=== PATIENT | female | born 1980 | race Two or more races ===

== ENCOUNTER 2020-04-13 13:20 | Emergency (ER) | payer OTHER ==
[~2020-04-13] VITALS: Ht 162.6 cm; Wt 73.6 kg
[2020-04-13 14:20] LABS: BASO % 0.4 % (0.0-1.0); EOS % 0.4 % (0.0-3.0); HEMOGLOBIN 12.8 g/dl (12.0-15.5); LYMPH # 1.9 10^3/uL (1.5-5.0); LYMPH % 28.8 % (24.0-44.0); MEAN CORPUSCULAR HEMOGLOBIN 31.2 pg (27.0-33.0); MEAN CORPUSCULAR VOLUME 97.6 fl (80.0-96.0); MONO # 0.5 10^3/uL (0.0-0.8); MONO % 7.7 % (2.0-8.0); NEUTROPHILS # 4.2 10^3/uL (1.5-8.5); NEUTROPHILS % 62.4 % (36.0-66.0); PLATELET COUNT, AUTOMATED 319 10^3/uL (150-450); WHITE BLOOD COUNT 6.7 10^3/uL (4.0-10.0)
[2020-04-13] MEDS ORDERED: ACETAMINOPHEN 500 MG TAB PO ONE (14:30)
--- OUTSIDE RECORDS SUMMARY | 2020-04-13 14:45 | CCD ---
Author Author [facility] Organization [facility] Address Unknown Phone Unavailable Care Team Providers Care Sr. Payroll Processor Name Role Phone Tari BAILEY MD Unavailable Unavailable Tari BAILEY MD Unavailable Unavailable Tari BAILEY MD Unavailable Unavailable Tari BAILEY MD Unavailable Unavailable Tari BAILEY MD Unavailable Unavailable Tari BAILEY MD Unavailable Unavailable Tari BAILEY MD Unavailable Unavailable Tari BAILEY MD Unavailable Unavailable Tari BAILEY MD Unavailable Unavailable Tari BAILEY MD Unavailable Unavailable Tari BAILEY MD Unavailable Unavailable Tari BAILEY MD Unavailable Unavailable Tari BAILEY MD Unavailable Unavailable Tari BAILEY MD Unavailable Unavailable Tari BAILEY MD Unavailable Unavailable Tari BAILEY MD Unavailable Unavailable Tari BAILEY MD Unavailable Unavailable Tari BAILEY MD Unavailable Unavailable Tari BAILEY MD Unavailable Unavailable Tari BAILEY MD Unavailable Unavailable Tari BAILEY MD Unavailable Unavailable Tari BAILEY MD Unavailable Unavailable Tari BAILEY MD Unavailable Unavailable Donald OCHOA MD Unavailable Unavailable Donald OCHOA MD Unavailable Unavailable Donald OCHOA MD Unavailable Unavailable Donald OCHOA MD Unavailable Unavailable Donald OCHOA MD Unavailable Unavailable Donald OCHOA MD Unavailable Unavailable Donald OCHOA MD Unavailable Unavailable Donald OCHOA MD Unavailable Unavailable Donald OCHOA MD Unavailable Unavailable Re-disclosure Warning The records that you are about to access may contain information from federally-assisted alcohol or drug abuse programs. If such information is present, then the following federally mandated warning applies: This information has been disclosed to you from records protected by federal confidentiality rules (42 CFR part 2). The federal rules prohibit you from making any further disclosure of this information unless further disclosure is expressly permitted by the written consent of the person to whom it pertains or as otherwise permitted by 42 CFR part 2. A general authorization for the release of medical or other information is NOT sufficient for this purpose. The Federal rules restrict any use of the information to criminally investigate or prosecute any alcohol or drug abuse patient.The records that you are about to access may contain highly sensitive health information, the redisclosure of which is protected by Article 27-F of the [facility] Public Health law. If you continue you may have access to information: Regarding HIV / AIDS; Provided by facilities licensed or operated by the [facility] Office of Mental Health; or Provided by the [facility] Office for People With Developmental Disabilities. If such information is present, then the following [facility] mandated warning applies: This information has been disclosed to you from confidential records which are protected by state law. State law prohibits you from making any further disclosure of this information without the specific written consent of the person to whom it pertains, or as otherwise permitted by law. Any unauthorized further disclosure in violation of state law may result in a fine or mcfp sentence or both. A general authorization for the release of medical or other information is NOT sufficient authorization for further disc losure. Encounters Encounter Providers Location Date Indications Data Source(s ) Emergency Attender: KRISTIN BAILEY MD 2019 12:26:00 PM EST - 01/05/2020 02:58:00 PM [facility] Patient discharged. Emergency Attender: REG OCHOA MD 11/03 01:05:00 PM EDT - 11/04/2019 02:15:00 PM T [facility] Patient discharged. Medications Medication Brand Name Start Date Product Form Dose Route Admi nistrative Instructions Pharmacy Instructions Status Indications Reaction Description Data Source(s) 800 mg 11/04/2019 12:00:00 AM EDT tablet 45 TAKE ONE TABLET BY MOUTH THREE TIMES A DAY NEEDED FOR PAIN TAKE ONE TABLET BY MOUTH THREE TIMES A D AY NEEDED FOR PAIN SOLD: 11/04/2019 [facility] 4 mg 11/04/2019 12:00:00 AM EDT tablets,dose pack 21 USE DIRECTED USE DIRECTED SOLD: 11/04/2019 [facility] 500 mg 11/04/2019 12:00:00 AM EDT tablet 30 TAKE ONE TABLET BY MOUTH THREE TIMES A DAY TAKE ONE TABLET BY MOUTH THREE TIMES A DAY SOLD: 11/04/2019 [facility] Insurance Providers Payer name Policy type / Coverage type Policy ID Covered democrat ID Covered democrat's relationship to najera Policy Najera Plan Information [facility] [employer] [id number] SP [id number] [facility] HU[employer] - O/P [id number] 18 [id number] [facility] [employer] - O/P [id number] 18 [id number] Problems, Conditions, and Diagnoses Code Display Name Description Problem Type Effective Dates Data Source(s) Z50393 Nicotine dependence, unspecified, uncomp licated Nicotine dependence, unspecified, uncomplicated Diagnosis 01/05/2020 12:26:00 PM [facility] R0789 Other chest pain Other chest pain Diagnosis 01/05/2020 12 :26:00 PM [facility] U071 COVID-19 COVID-19 Diagnosis 01/05/2020 12:26:00 PM [facility] R509 Fever, unspecified Fever, unspecified Diagnosis 0 12:26:00 PM [facility] M461 Sacroiliitis, not elsewhere classified S acroiliitis, not elsewhere classified Diagnosis 11/04/2019 01:05:00 PM EDT [facility] M545 Low back pain Low back pain Diagnosis 11/04/2019 01:05:00 PM EDT [facility] Results ID Date Data Source [id number] 01/05/2020 12:26:00 PM [facility] 1 OrderSheet [facility] Emergency Department [address] [place] [address] Phone #: ext- [phone] 01/05/2020 12:17 Patient: JOVAN LOPEZ Sex: F : 1980 Age: 39yWEIGHT:67.5 kg (S)ALLERGIES: NoneCHIEF COMPLAINT: fever, sore throat, muscle aches, cough, possible, COVID-19 exposure:DIAGNOSIS: Severe acute respiratory syndrome coronavirus, Viral diseaseLAB ORDERSOrder Description Priority Entered Acknowledged InitialedRapid Strep Screen STAT 12:44 01/05/2020 13:14 Mireya Rayo Julie R.N.; R.N. Verbal order per; Manny Thompson-CInfluenza Nasal A B STAT 12:44 01/05/2020 13:14 Mireya Rayo Julie R.N.; R.N. Verbal order per; Manny Thompson-CCORONAVIRUS STAT 12:44 01/05/2020 13:14 Mireya RayoCOVID-19 Mireya Rayo R.N.; R.NTaurus Verbal order per; Manny Thompson-CDIAGNOSTIC STUDY ORDERSOrder Description Priority Entered Acknowledged InitialedChest 2 View STAT 13:16 01/05/2020 13:57 Mireya Rayo(Oxygen?(No)) Manny Dunham R.N. P.A.-Michael; Reason for Study: fever, pnu vs covidMEDICATION/IV/DRIP/FLUID ORDERSOrder Description Priority Entered Acknowledged InitialedGENERAL ORDERSOrder Description Priority Entered Acknowledged Initialed[Electronically signed by Mireya Rayo R.N. (14:58 01/05/2020)][Electronically signed by Manny Dunham-C (21:40 01/05/2020)] 2 OrderSheet [facility] Emergency Department [address] [place] [address] Phone #: ext- [phone] 01/05/2020 12:17 Patient: JOVAN LOPEZ Sex: F : 1980 Age: 39y[Electronically locked by Mireya Rayo R.N. (14:58 01/05/2020)] Name Value Range Interpretation Code Description Data [facility](s) Supporting Document(s) ID Date Data Source [id number] 01/05/2020 12:26:00 PM [facility] 1 Medication Reconciliation Report [facility] Emergency Department [address] [place] [address] Phone #: ext- [phone] 01/05/2020 12:17 Patient: JOVAN LOPEZ Sex: F : 1980 Age: 39yWeight: 67.5 kgHeight/Length: 64 in.BMI: 25.6ALLERGIES: NoneThe patient's Home Medications are listed below:CONTINUE TAKING THE FOLLOWING MEDICATIONS: Acetaminophen Oral 325 mg, q6h, prn diphenhydrAMINE HCl Oral (25 mg) 1 capsule, daily, at bedtime Mucinex D Oral (60-600 mg), 2x a day Naproxen Oral (500 mg) 1 tablet, 2x a dayThe source(s) of the original Home Medication information:Not obtained.The following Medications were given to the patient in the Emergency Department:None.The following Medications were prescribed to the patient:None. Name Value Range Interpretation Code Description Data [facility](s) Supporting Document(s) ID Date Data Source [id number] 01/05/2020 12:26:00 PM [facility] 1 Medication Administration Record [facility] Emergency Department [address] [place] [address] Phone #: ext- [phone] 01/05/2020 12:17 Patient: JOVAN LOPEZ Sex: F : 1980 Age: 39yWeight: 67.5 kgHeight/Length: 64 inBMI: 25.6ALLERGIES: NoneDate/Time Medication Administered Medication Ordered Name Value Range Interpretation Code Description Data Goldie rce(s) Supporting Document(s) ID Date Data Source [id number] 01/05/2020 12:26:00 PM EST [facility] 1 General Instructions [facility] Emergency Department [address] [place] [address] Phone #: ext- [phone] 01/05/2020 12:17 Patient: JOVAN LOPEZ Sex: F : 1980 Age: 39y Coronavirus COVID-19 presumed (confirmatory testing pending) with upper respiratory infection. Acute viral syndromeINSTRUCTIONS Take Tylenol (Acetaminophen) or Motrin (Ibuprofen) as needed for fever control. Take medication according to label instructions. Rest at home for one weeks (You are on a self quarantine x 1 week. This may be extended or decreased by [facility].). Drink plenty of fluids. ([facility]: [phone]. Please contact them in approx 3-4 days if you have not heard from them. You are on a self quarantine x 1 week. This may be extended or decreased by [facility]. I recommend to purchase a small finger pulse oximeter to monitor your O2 saturation at home. If becomes too low (<90%), please contact your PCP or return to the ER. Recommend to utilize OTC Motrin and Tylenol to control inflammation and pain management. Recommend to follow the instructions on the bottle and not to exceed.). Warnings: Further evaluation is necessary. GENERAL WARNINGS: Return or contact your physician immediately if your condition worsens or changes unexpectedly, if not improving as expected, or if other problems arise. Your Current Medications: Your current home medications have been reviewed. CONTINUE TAKING THE FOLLOWING MEDICATIONS: Acetaminophen Oral : 325 mg q6h, prn. diphenhydrAMINE HCl Oral : Capsule 25 mg, 1 capsule daily, at bedtime. Mucinex D Oral : Tablet Extended Release 12 Hour 60-600 mg, 2x a day. Naproxen Oral : Tablet 500 mg, 1 tablet 2x a day. Follow-up: Return to the emergency department as needed. Follow up with your healthcare provider in about two days if not better. Call for an appointment. Understanding of the discharge instructions verbalized by patient. 2 General Instructions [facility] Emergency Department [address] [place] [address] Phone #: ext- [phone] 01/05/2020 12:17 Patient: JOVAN LOPEZ Sex: F : 1980 Age: 39y ADDITIONAL INFORMATIONViral Syndrome (Adult)A viral illness may cause a number of symptoms such as fever. Other symptoms depend on the partof the body that the virus affects. If it settles in your nose, throat, and lungs, it may cause cough, sorethroat, congestion, runny nose, headache, earache and other ear symptoms, or shortness of breath.If it settles in your stomach and intestinal tract, it may cause nausea, vomiting, cramping, anddiarrhea. Sometimes it causes generalized symptoms like "aching all over," feeling tired, loss ofenergy, or loss of appetite.A viral illness usually lasts anywhere from several days to several weeks, but sometimes it lastslonger. In some cases, a more serious infection can look like a viral syndrome in the first few days ofthe illness. You may need another exam and additional tests to know the difference. Watch for thewarning signs listed below for when to seek medical advice.Home careFollow these guidelines for taking care of yourself at home: If symptoms are severe, rest at home for the first 2 to 3 days. Stay away from cigarette smoke - both your smoke and the smoke from others. You may use gpso-rgc-oyviqnm acetaminophen or ibuprofen for fever, muscle aching, and headache, unless another medicine was prescribed for this. If you have chronic liver or kidney disease or ever had a stomach ulcer or gastrointestinal bleeding, talk with your healthcare provider before using these medicines. No one who is younger than 18 and ill with a fever should take aspirin. It may cause severe disease or . Your appetite may be poor, so a light diet is fine. Avoid dehydration by drinking 8 to 12, 8- ounce glasses of fluids each day. This may include water; orange juice; lemonade; apple, grape, and cranberry juice; clear fruit drinks; electrolyte replacement and sports drinks; and decaffeinated teas and coffee. If you have been diagnosed with a kidney disease, ask your healthcare provider how much and what types of fluids you should drink to prevent dehydration. If you have kidney disease, drinking too much fluid can cause it build up in the your body and be dangerous to your health. Htan-ear-fdshccw remedies won't shorten the length of the illness but may be helpful for symptoms such as cough, sore throat, nasal and sinus congestion, or diarrhea. Don't use decongestants if you have high blood pressure.Follow-up careFollow up with your healthcare provider if you do not improve over the next week. 3 General Instructions [facility] Emergency Department [address] [place] [address] Phone #: ext- [phone] 01/05/2020 12:17 Patient: JOVAN LOPEZ Sex: F : 1980 Age: 39yCall 911Call 911 if any of the following occur: Convulsion Feeling weak, dizzy, or like you are going to faint Chest pain, or more than mild shortness of breathWhen to seek medical adviceCall your healthcare provider right away if any of these occur: Cough with lots of colored sputum (mucus) or blood in your sputum Chest pain, shortness of breath, wheezing, or trouble breathing Severe headache; face, neck, or ear pain Severe, constant pain in the lower right side of your belly (abdominal) Continued vomiting (can't keep liquids down) Frequent diarrhea (more than 5 times a day); blood (red or black color) or mucus in diarrhea Feeling weak, dizzy, or like you are going to faint Extreme thirst Fever of 100.4F (38C) or higher, or as directed by your healthcare provider [phone] The [employer]. [address] [place] [address]. All rights reserved. This information is not intended as asubstitute for professional medical care. Always follow your healthcare professional's instructions. Prevention steps for People with confirmed or suspected COVID-19 (including persons under investigation) who do not need to be hospitalized And People with confirmed COVID-19 who we re hospitalized and determined to be medically stable to go home Your healthcare provider and public health staff will evaluate whether you can be cared for at home. If it isdetermined that you do not need to be hospitalized and can be isolated at home, you will be monitored by staff fromyo local or state health department. You should follow the prevention steps below until a healthcare provider [facility] or state health department says you can return to your normal activities. 4 General Instructions [facility] Emergency Department [address] [place] [address] Phone #: [phone]- [phone] 01/05/2020 12:17 Patient: JOVAN LOPEZ Sex: F : 1980 Age: 39y Stay home except to get medical care People who are mildly ill with COVID-19 are able to isolate at home during their illness. You should restrict activities outside yourhome, except for getting medical care. Do not go to work, school, or public areas. Avoid using public transportation, ride-sharing, ortaxis. Separate yourself from other people and animals in your home People: As much as possible, you should stay in a specificroom and away from other people in your home. Also, you should use a separate bathroom, if available.Animals: You should restrict contact with pets and other animals while you are sick with COVID-19, just like you would around otherpeople. Although there have not been reports of pets or other animals becoming sick with COVID- 19, it is still recommended thatpeople sick with COVID-19 limit contact with animals until more information is known about the virus. When possible, have anothermember of your household care for your animals while you are sick. If you are sick with COVID-19, avoid contact with your pet,including petting, snuggling, being kissed or licked, and sharing food. If you must care for your pet or be around animals while you aresick, wash your hands before and after you interact with pets and wear a facemask. See https://www.cdc.gov/coronavirus/2019-ncov/faq.html#8128-xIpX-zuj-animals for more information. Call ahead before visiting your doctor If you have a medical a ppointment, call the healthcare provider and tell them that you have or may have COVID-19. This will helpthe healthcare provider's office take steps to keep other people from getting infected or exposed. Wear a facemask You should wear a facemask when you are around other people {e.g., sharing a room or vehicle} or pets and before you enter ahealthcare provider's office. If you are not able to wear a facemask {for example, because it causes trouble breathing}, thenpeople who live with you should not stay in the same room with you, or they should wear a facemask if they enter your room. Cover your coughs and sneezes Cover your mouth and nose with a tissue when you cough or sneeze. Throw used tissues in a lined trash can. Immediately washyour hands with soap and water for at least 20 seconds or, if soap and water are not available, clean your hands with analcohol-based hand pipe maker that contains at least 60% alcohol. Clean your hands often Wash your hands often with soap and water for at least 20 seconds, especially after blowing your nose, coughing, or sneezing;going to the bathroom; and before eating or preparing food. If soap and water are not readily available, use an alcohol-based handsanitizer with at least 60% alcohol, covering all surfaces of your hands and rubbing them together until they feel dry. Soap and water are the best option if hands are visibly dirty. Avoid touching your eyes, nose, and mouth with unwashedhands. Flu Like Symptoms / Coronavirus Exposure - 30a Page 1 of 2 Avoid sharing personal household items You should not share dishes, drinking glasses, cups, eating utensils, towels, or bedding with other people or pets in yourhome. After using these items, they should be washed thoroughly with soap and water. Clean all "high- touch" surfaces everyday High touch surfaces include counters, tabletops, doorknobs, bathroom fixtures, toilets, phones, keyboards, tablets, and bedsidetables. Also, clean any surfaces that may have blood, stool, or body fluids on them. Use a household cleaning spray or wipe,according to the label instructions. Labels contain instructions for safe and effective use of the cleaning product including precautions you should take when applyingthe product, such as wearing gloves and making sure you have good ventilation during use of the product. Monitor your symptomshttps://www.Rift.io.Kaznachey/index.php Seek prompt medical attention if your illness is worsening {e.g., difficulty breathing}. Before seeking care, call your healthcareprovider and tell them that you have, or are being evaluated for, COVID-19. Put on a facemask before you enter the facility.These steps will help the healthcare provider's office to keep other people in the office or waiting room from getting infected or 5 General Instructions [facility] Emergency Department [address] [place] [address] Phone #: [phone] 01/05/2020 12:17 Patient: JOVAN LOPEZ Sex: F : 1980 Age: 39yexposed. Ask your healthcare provider to call the local or state health department. Persons who are placed under activemonitoring or facilitated self-monitoring should follow instructions provided by their local health department or occupational healthprofessionals, as appropriate. When working with your local health department check their available hours.If you have a medical emergency and need to call 911, notify the dispatch personnel that you have, or are being evaluated forCOVID-19. If possible, put on a facemask before emergency medical services arrive.Discontinuing home isolationPatients with confirmed COVID-19 should remain under home isolation precautions until the risk of secondary transmission toothers is thought to be low. The decision to discontinue home isolation precautions should be made on a adtx-at-lvty basis, inconsultation with healthcareproviders and state and local health departments.Contacts F[employer]Online informationhttps://www.cdc.gov/coronavirus/2019-ncov/about/ index.html Content source: National Center for Immunization and Respiratory Diseases (NCIRD), Division of Viral Diseases Recommended precautions for household members, intimate partners, and caregivers in a nonhealthcare setting1 of A patient with symptomatic laboratory-confirmed COVID-19 or A patient under investigationHousehold members, intimate partners, and caregivers in a nonhealthcare setting may have close contact2 with aperson with symptomatic, laboratory-confirmed COVID-19 or a person under investigation. Close contacts shouldmonitor their health; they should call their healthcare provider right away if they develop symptoms suggestive of COVID-19 {e.g., fever, cough, shortness of breath} {see Interim [place] Guidance for Risk Assessment and Public Health Management of Persons with Potential Coronavirus Disease 2019 6 General Instructions [facility] Emergency Department [address] [place] [address] Phone #: ext- [phone] 01/05/2020 12:17 Patient: JOVAN LOPEZ Sex: F : 1980 Age: 39y {COVID-19} Exposure in Travel- associated or Community Settings.}Close contacts should also follow these recommendations: Make sure that you understand and can help the patient follow their healthcare provider's instructions for medication{s} and care. You should help the patient with basic needs in the home and provide support for getting groceries, prescriptions, and other personal needs. Monitor the patient's symptoms. If the patient is getting sicker, call his or her healthcare provider and tell them that the patient has laboratory-confirmed COVID-19. This will help the healthcare provider's office take steps to keep other people in the office or waiting room from getting infected. Ask the healthcare provider to call the local or state health department for additional guidance. If the patient has a medical emergency and you need to call 911, notify the dispatch pe our community [facility] that the patient has, or is being evaluated for COVID-19. Household members should stay in another room or be from the patient as much as possible. Household members should use a separate bedroom and bathroom, if available. Prohibit visitors who do not have an essential need to be in the home. Household members should care for any pets in the home. Do not handle pets or other animals while sick. For more information, see COVID-19 and Animals. Make sure that shared spaces in the home have good air flow, such as by an air conditioner or an opened window, weather permitting. Perform hand hygiene frequently. Wash your hands often with soap and water for at least 20 seconds or use an alcohol-based hand pipe maker that contains 60 to 95% alcohol, covering all surfaces of your hands and rubbing them together until they feel dry. Soap and water should be used preferentially if hands are visibly dirty.Avoid touching your eyes, nose, and mouth with unwashed hands. The p atient should wear a facemask when around other people, except when unable {for example, because it causes trouble breathing}. You, as the caregiver should always wear a mask, regardless if the patient has one on or not whenever you are in the same room as the patient. Wear a disposable facemask and gloves when you touch or have contact with the patient's blood, stool, or body fluids, such as saliva, sputum, nasal mucus, vomit, urine. Throw out disposable facemasks and gloves after using them. Do not reuse. When removing personal protective equipment, first remove and dispose of gloves. Then, immediately clean your hands with soap and water or alcohol-based hand pipe maker. Next, remove and dispose of facemask, and immediately clean your hands again with soap and water or alcohol-based hand pipe maker. Avoid sharing household items with the patient. You should not share dishes, drinking glasses, cups, eating utensils, towels, bedding, or other items. After the patient uses these items, you should wash them thoroughly {see below "Wash laundry thoroughly"}. Flu Like Symptoms / Coronavirus Exposure - 30a Page 2 of 2 Clean all "high-touch" surfaces, such as counters, tabletops, doorknobs, bathroom fixtures, toilets, phones, keyboards, tablets, and bedside tables, every day. Also, clean any surfaces that may have blood, stool, or body fluids on them. Use a household cleaning spray or wipe, according to the label instructions. Labels contain instructions for safe and effective use of the cleaning product including precautions you should take when applying the product, such as wearing gloves and making sure you have good ventilation during use of the product. Wash laundry thoroughly. Immediately remove and wash clothes or bedding that have blood, stool, or body fluids on them. Wear disposable gloves while handling soiled items and keep soiled items away from your body. Clean your hands {with soap and water or an alcohol-based hand pipe maker} immediately after removing your gloves. https://www.[employer]/index.php Read and follow directions on labels of laundry or clothing items and detergent. In general, using a normal laundry detergent according to washing machine instructions and dry thoroughly using the warmest temperatures recommended on the clothing label. Place all used disposable gloves, facemasks, and other contaminated items in a lined container before disposing of them with other household waste. Clean your hands {with soap and water or an alcohol-based hand pipe maker} immediately after 7 General Instructions [facility] Emergency Department [address] [place] [address] Phone #: ext- [phone] 01/05/2020 12:17 Patient: JOVAN LOPEZ Sex: F : 1980 Age: 39y handling these items. Soap and water should be used preferentially if hands are visibly dirty. Discuss any additional questions with your state or local health department or healthcare provider. Check available hours when contacting your local health department. Contacts mobiManage.Online information https://www.cdc.gov/coronavirus/2019-ncov/about/index.htmlContent source: National Center for Immunization and Respiratory Diseases (NCIRD), Division of Viral DiseasesFootnotes 1Home healthcare personnel should refer to I trudy Infection Prevention and Control Recommendations for Patients with Known or Patients Under Investigationfor Coronavirus Disease 2019 (COVID-19) in a Healthcare Setting. 2Close contact is defined as-1. being within approximately 6 feet (2 meters) of a COVID-19 case for a prolonged period of time; close contact can occur while caring for, living with, visiting, or sharing a health care waiting area or room with a COVID-19 case - or -2. having direct contact with infectious secretions of a COVID-19 case (e.g., being coughed on You have been given the following additional information: Viral Syndrome (Adult) 8 General Instructions [facility] Emergency Department [address] [place] [address] Phone #: ext- [phone] 01/05/2020 12:17 Patient: JOVAN LOPEZ Sex: F : 1980 Age: 39y COVID-19 Rest at home for one weeks (You are on a self quarantine x 1 week. This may be extended or decreased by JC.).(Electronically signed by Manny Dunham P.A.-C 01/05/2020 21:40) Name Value Range Interpretation Code Description Data Goldie rce(s) Supporting Document(s) ID Date Data Source [id number] 01/05/2020 12:26:00 PM EST [facility] 1 Clinical Report - Nurses [facility] Emergency Department [address] [place] [address] Phone #: [phone]- [phone] 01/05/2020 12:17 Patient: JOVAN LOPEZ Sex: F : 1980 Age: 39yTRIAGEArrived by private vehicle. Historian: patient. Accompanied by family. ( started with cough , seen onsick call and tuesday dx with sinusitis , chest hurts with cough).Chief Complaint: FEVER.Alert.Onset. (tuesday). She has had a sore throat and a cough. ( fever tue 101.0, joint pain).Treatment RING SPINNER:None.SEPSIS SCREEN: SIRS Screen negative. Sepsis Screen negative. No suspected or confirmed signs ofinfection present. --12:24 01/05/20 Mireya Rayo R.N.( general malaise). --12:39 01/05/20 Mireya Rayo R.N.12:37 01/05/20. BP: 124/93. MAP: 103. HR: 81. RR: 20. O2 saturation: 100%. Temp: 99.5 F (oral). Painlevel now: 09/30. --12:39 01/05/20 Mireya Rayo R.N.Acuity: LEVEL 4. --14:56 1 03/06/19 Mireya Rayo R.N.Weight: 67.5 kg stated. Height/Length: 64 inches Per Patient. BMI: 25.6. --12:17 01/05/20 Mireya Rayo R.N.MedicationsNaproxen Oral (Tablet 500 mg) 1 tablet, 2x a day. --12:01/05/20 Mireya Rayo R.N. Acetaminophen Oral 325 mg, q6h as needed. --12:01/05/20 Mireya Rayo R.N. diphenhydrAMINE HCl Oral (Capsule 25 mg) 1 capsule, daily at bedtime. --12:01/05/20 Mireya Rayo R.N. Mucinex D Oral (Tablet Extended Release 12 Hour 60-600 mg), 2x a day. --12:01/05/20 Mireya Rayo R.N.AllergiesNone. --12:01/05/20 Mireya Rayo R.N.PROBLEMS:no known problems.ADDITIONAL SURGERIES:no known surgeries. 2 Clinical Report - Nurses [facility] Emergency Department [address] [place] [address] Phone #: ext- [phone] 01/05/2020 12:17 Patient: JOVAN LOPEZ Sex: F : 1980 Age: 39y History PAST MEDICAL HX: Immunizations: up-to-date. Last normal menstrual period- Jan 01. SOCIAL HX: Light tobacco smoker- less than 1/2 a pack per day. No alcohol use or drug use. No recent travel. No known contact with a sick individual. She was offered HIV testing but declined and hepatitis C testing but declined. She has not traveled outside the [place] Infectious disease exposure: No infectious disease exposure. Patient is not a known carrier of tuberculosis, hepatitis, HIV, MRSA or VRE. Patient is not a known carrier of CRE. SELF HARM ASSESSMENT: Self harm assessment was performed. The patient answered "no" to the question(s) "Have you recently felt down, depressed, or hopeless?", "Do you have thoughts of harming or killing yourself?", "Do you have a plan for harming or killing yourself?", "Have you recently had thoughts about harming or killing others?", "Do you have any dangerous items in your possession?", "Have you noticed less interest or pleasure in doing things?", "Are you here because you tried to hurt yourself?" and "Have you ever tried to hurt yourself before today?". ABUSE ASSESSMENT: Abuse assessment. Abuse denied. No suspicion of abu se. No report of abuse. NUTRITIONAL RISK ASSESSMENT: The nutritional risk assessment revealed no deficiencies. FUNCTIONAL ASSESSMENT: Functional assessment: no impairments noted. LEARNING NEEDS ASSESSMENT: The learning needs assessment revealed no barriers. FALL RISK ASSESSMENT: Fall risk assessment completed. No risk factors identified. SKIN INTEGRITY ASSESSMENT: Skin integrity risk assessment completed. No skin integrity risk identified. --12:24 01/05/20 Mireya Rayo R.N. Interventions Identification band on patient. To treatment room. --12:24 01/05/20 Mireya Rayo R.N.PHYSICAL ASSESSMENTGENERAL / NEURO / PSYCH: Not alert. Oriented X 4.HEENT: Pharyngeal erythema. Mucous membranes are pink.RESPIRATORY: Respirations not labored. Cough. Breath sounds within normal limits.CVS: Normal sinus rhythm noted. Capillary refill less than 2 seconds. Pulses within normal limits.GI / : Abdomen soft and nontender and normal bowel sounds.SKIN: Skin intact. Skin is warm and dry. Normal skin turgor. --12:39 12/22 06/10 Mireya Rayo R.N.NURSING PROGRESS NOTESReassurance given. Two patient identifiers checked. Call light placed in reach. Side rails up x 2. Bedplaced in lowest position. Brakes of bed on. Patient ready for evaluation- PA notified. --12:40 01/05/20Mireya Rayo R.N. 3 Clinical Report - Nurses [facility] Emergency Department [address] [place] [address] Phone #: ext- [phone] 01/05/2020 12:17 Patient: JOVAN LOPEZ Sex: F : 1980 Age: 39y Patient ID band checked for patient name and birthdate: patient confirmed. Flu swab obtained by RN. Labeled in the presence of the patient and sent to lab. Patient ID band checked for patient name and birthdate: patient confirmed. COVID-19 specimen obtained by RN. Labeled in the presence of the patient and sent to lab. Patient ID band checked for patient name and birthdate: patient confirmed. Throat swab obtained by nurse for rapid strep; labeled in the presence of the patient and sent to lab. --13:15 01/05/20 Mireya Rayo R.N. 13:47 01/05/20. Patient walked to radiology with tech. --13:57 01/05/20 Mireya Rayo R.N. Patient walked back from radiology. --13:58 01/05/20 Mireya Rayo R.N. ( waiting on results). --14:18 01/05/20 Mireya Rayo R.N. 14:17 01/05/20. BP: 113/92. MAP: 99. HR: 78. RR: 18. O2 saturation: 100%. Pain level now: 08/30. --14:18 01/05/20 Mireya Rayo R.N.DISPOSITION / DISCHARGE Condition at departure: unchanged. No learning barriers present. Discharge instructions provided and re viewed with the parent. Activity restrictions reviewed. Parent verbalized understanding. Written instructions provided in [place]. The patient was discharged home and accompanied by parent. She left via private vehicle. Parent driving. --14:55 01/05/20 Mireya Rayo R.N. 14:53 01/05/20. BP: 115/78. MAP: 90. HR: 78. RR: 18. O2 saturation: 99%. Temp: 99.1 F. Pain level now: 08/30. --14:55 01/05/20 Mireya Rayo R.N. Departure time: 14:56 01/05/2020. --14:56 01/05/20 Mireya Rayo R.N.Locked/Released at 01/05/2020 14:58 by Mireya Rayo R.N. Name Value Range Interpretation Code Description Data Goldie rce(s) Supporting Document(s) ID Date Data Source [id number] 01/05/2020 12:26:00 PM [facility] 1 Clinical Report - Physicians/Mid Levels [facility] Emergency Department [address] [place] [address] Phone #: ext- [phone] 01/05/2020 12:17 Patient: JOVAN LOPEZ Sex: F : 1980 Age: 39y Time Seen: 12:30 01/05/2020; initial patient contact, initial documentation. Arrived- By private vehicle. Historian- patient. Disposition decision: 14:25 01/05/2020.HISTORY OF PRESENT ILLNESS Chief Complaint: FEVER, COUGH, SORE THROAT and MUSCLE ACHES and possible COVID-19 EXPOSURE. This started about 1 weeks ago and is still present. The patient has had a cough, sinus drainage, nasal congestion, a sore throat and fever. She has had chills, muscle aches and a headache but not been confused. No skin rash, difficulty breathing, chest discomfort or chest pain or nausea. No vomiting, diarrhea, loss of appetite or sputum production. No known contact with a sick individual. (PT sts taht she started with a cough and slight fever. Went to sick call on Tuesday and 'ed with sinusitis. Pt has contineud with fever/chills and general malaise.). Sayra lar symptoms previously. None. Recent medical care: The patient was seen recently at another facility in a clinic.REVIEW OF SYSTEMSNo fatigue, weight loss, photophobia, sinus pain or toothache. No weakness, dizziness, palpitations, calfpain or abdominal pain. No bloody stools, urinary incontinence, joint pain, enlarged lymph nodes or tickbite. No back pain. All other systems reviewed and are negative.PAST HISTORYSee nurses notes. Problems: Back Pain. Sacroiliitis. Additional Surgeries: no known surgeries. Medications: Mucinex D Oral (Tablet Extended Release 12 Hour 60-600 mg), 2x a day. diphenhyd rAMINE HCl Oral (Capsule 25 mg) 1 capsule, daily at bedtime. Acetaminophen Oral 325 mg, q6h as needed. Naproxen Oral (Tablet 500 mg) 1 tablet, 2x a day. Allergies: None.SOCIAL HISTORY 2 Clinical Report - Physicians/[facility] Emergency Department [address] [place] [address] Phone #: ext- [phone] 01/05/2020 12:17 Patient: JOVAN LOPEZ Sex: F : 1980 Age: 39y Light tobacco smoker- less than 1/2 a pack per day. No alcohol use or drug use .ADDITIONAL NOTESThe nursing notes have been reviewed.PHYSICAL EXAMVital Signs: 01/05/2020 12:37 BP: 124/93. MAP: 103. HR: 81. RR: 20. O2 saturation: 100%. Temp: 99.5F. Pain level now: 8/10. Have been reviewed. Oxygen saturation normal.Appearance: Alert. No acute distress.Eyes: Eyelids appear normal to inspection. Conjunctivae and sclerae appear normal to inspection.Corneas appear normal to inspection. Pupils equal, round and reactive to light. EOMs intact. Periorbitalareas appear normal to inspection. Anterior chambers clear.ENT: Airway intact. Nose normal. Nares normal. Pharynx normal. Moist mucous membranes. Uvulamidline. Voice normal.Ear (right): There is dullness of the tympanic membrane and abnormal insufflation. No tenderness of theauricle, pain with movement of the auricle, lymphadenopathy, erythema of the external canal or swelling ofthe external canal. No material in the external canal. Right ear normal. Normal mastoid. No hearingdeficit.Ear (left): There is dullness of the tympanic membrane and abnormal insufflation. No tenderness of theauricle, lymphadenopathy, erythema of the external canal, swelling of the external canal or material in theexternal canal. Left ear normal. Normal mastoid. No hearing deficit.Neck: Normal inspection. Neck supple.CVS: Normal heart rate and rhythm. No JVD present. Pulses normal. Capillary refill normal. Strongperipheral pulses. Heart sounds normal. Pulses: right radial 2+; left radial 2+.Respiratory: Chest normal on inspection. No respiratory distress. Unlabored respirations. Lungs clear.Good chest movement. Breath sounds normal and equal.Abdomen: Normal inspection. Soft and nontender. Bowel sounds normal. No distention.Skin: Skin warm and dry.Neuro: Awake. Alert. Oriented X 3. Mood/affect normal. Speech normal. No motor deficit. Nosensory deficit.Psych: Cognition normal. Thought process and content normal. Insight and judgement normal.LABS, X-RAYS, AND EKGChest X-ray: (J Carlos morgan Kirwin - 01/05/2020 2:01:26 PM No acute disease). Laboratory Tests: Chest 2 View: (MARIAJOSE: 01/05/2020 13:16) ( [facility] 14[facility]15[facility] In Progress CHEST 2 VIEWS Reason(s): fever, pnu vs covid TRANSPORTATION: IV? O2? Oxygen?(No) Room: ED Rapid Strep Screen: (MARIAJOSE: 01/05/2020 12:45) ( MsgRcvd 01/05/2020 13:31) Final results Test Result Flag Units (Reference) 3 Clinical Report - Physicians/Mid Levels [facility] Emergency Department [address] [place] [address] Phone #: ext- [phone] 01/05/2020 12:17 Patient: JOVAN LOPEZ Sex: F : 1980 Age: 39y RAPID STREP NEGATIVE (NORMAL: NEGAT RAPID STREP REENTER NEGATIVE (NORMAL: NEGAT { PROCEDURAL CONTROL VALID ){ KIT LOT # [id number] ){ KIT EXP DATE 05.25.21 )The Strep A 2 assay utilizes isothermal nucleic acid amplification technology fothe qualitative detection of Group A Strep bacterial nucleic acid in throat swabspecimens.All negative test results no longer need to be confirmed with a culture. Follow-up testing requiring a culture is necessary if clinical symptoms persist, or inthe event of an acute rheumatic fever outbreak. A culture will need to beordered by the Qualified Medical Provider.Negative results do not preclude infection with Group A Strep and should not beused as the sole basis for treatment. Influenza Nasal A B: (MARIAJOSE: 01/05/2020 12:45) ( MsgRcvd 01/05/2020 13:32) Final results Test Result Flag Units (Reference) INFLUENZA A NEGATIVE (NORMAL: NEGAT INFLUENZA B NEGATIVE (NORMAL: NEGAT INFLUENZA A REENTER NEGATIVE (NORMAL: NEGAT INFLUENZA B REENTER NEGATIVE (NORMAL: NEGAT PROCEDURAL CONTROL VALID KIT LOT # _[id number] 01/05/20.1. . KIT EXP DATE _05.09.20 01/05/201. .The Influenza A utilizing an isothermal nucleic acid amplification technology for thequalitative detection of influenza A and B viral RNA.Negative results do not preclude influenza virus infection and should not beused as the sole basis for diagnosis, treatment or other patient managementdecisions..PROGRESS AND PROCEDURESCourse of Care: VSS, NAD, AOx3, interacting well and appropriately, no use of accessory muscle, able tospeak full sentences, stable, non-toxic looking. Enter room and pt lying peacefully in bed in NAD. Patient stable. Denies any new issues, concerns, or complaints. ARIS HARRIS itzeina b/l UE. Will obtain labs and imaging for furhte reval. Pending results. Reviewed results Enter room and patient lying peacefully in bed in NAD. Patient stable. Denies any new issues, concerns, or complaints. Discussed results with pt. Discussed tx plan with pt. Discussed and counseled on stable condition. Discussed importance of a f/u with PCP. Discussed return to ER criteria. Answered their questions. Indicates and verbalizes that they understand, agree, and will comply with above. Denies any new questions or concerns. Patient has capacity to understand. Discharge decision based on the following: patient's condition is stable; patient's exam is stable; social support is adequate; transportation is available; follow-up is available. Discussed of OTC Motrin and Tylenol to control inflammation and pain management. Informed to follow directions on bottle that are appropriate for age and/or weight. 4 Clinical Report - Physicians/Mid Levels [facility] Emergency Department [address] [place] [address] Phone #: ext- [phone] 01/05/2020 12:17 Patient: JOVAN LOPEZ Sex: F : 1980 Age: 39y Disposition: Discharged home in good and improved condition. Condition: good and stable.CLINICAL IMPRESSION Coronavirus COVID-19 presumed (confirmatory testing pending) with upper respiratory infection. Acute viral syndromeINSTRUCTIONS Take Tylenol (Acetaminophen) or Motrin (Ibuprofen) as needed for fever control. Take medication according to label instructions. Rest at home for one weeks (You are on a self quarantine x 1 week. This may be extended or decreased by [facility].). Drink plenty of fluids. ([facility]: [phone]. Please contact them in approx 3-4 days if you have not heard from them. You are on a self quarantine x 1 week. This may be extended or decreased by [facility]. I recommend to purchase a small finger pulse oximeter to monitor your O2 saturation at home. If becomes too low (<90%), please contact your PCP or return to the ER. Recommend to utilize OTC Motrin and Tylenol to control inflammation and pain management. Recommend to follow the instructions on the bottle and not to exceed.). Warnings: Further evaluation is necessary. GENERAL WARNINGS: Return or contact your physician immediately if your condition worsens or changes unexpectedly, if not improving as expected, or if other problems arise. Your Current Medications: Your current home medications have been reviewed. CONTINUE TAKING THE FOLLOWING MEDICATIONS: Acetaminophen Oral : 325 mg q6h, prn. diphenhydrAMINE HCl Oral : Capsule 25 mg, 1 capsule daily, at bedtime. Mucinex D Oral : Tablet Extended Release 12 Hour 60-600 mg, 2x a day. Naproxen Oral : Tab let 500 mg, 1 tablet 2x a day. Follow-up: Return to the emergency department as needed. Follow up with your healthcare provider in about two days if not better. Call for an appointment. Understanding of the discharge instructions verbalized by patient. 5 Clinical Report - Physicians/Mid Levels [facility] Emergency Department [address] [place] [address] Phone #: ext- [phone] 01/05/2020 12:17 Patient: JOVAN LOPEZ Sex: F : 1980 Age: 39y(Electronically signed by Manny Dunhma P.A.-C 01/05/2020 21:40) Name Value Range Interpretation Code Description Data Goldie e(s) Supporting Document(s) ID Date Data Source [id number] 01/05/2020 12:26:00 PM [facility] VisitID: [id number] Date: 10:01Lab results reviewed. Communicated information to patient. Faxed results to [facility].(Electronically signed by Osbaldo Haq - 01/09/2020 10:01) Name Value Range Interpretation Code Description Data Goldie rce(s) Supporting Document(s) ID Date Data Source [id number] 01/07/2020 10:54:00 [place] [address] PHONE: [phone] FAX: [phone] Name .................. : JOHN Bennett Acct Number.................. : [id number] ROOM. ................. : -1B MR Number ................... : [id number] Stay type ............. : E/R Discharge Date......... ... : Admit Date ......... : 01/05/20 Admit Phys .................... : COONEYNORM Date of ....... : 1980 Family Phys ................... : UNKNOWN Phone .................. : [phone] Age ................................ : 39 Film# .................. .:[id number] Sex ................................. : F Unsigned transcriptions are preliminary reports and do not represent a medical or legal document CHEST 2 VIEWS [id number] COMPLETE:01/05/20 14:15 MIRANDA [id number] R nishi(s): fever, pnu vs covid CHEST X-RAY: 2-VIEWS COMPARISON: None. FINDINGS: The cardiac and mediastinal silhouettes appear normal and the lungs are clear. The bones and soft tissues are normal. The upper abdomen is unremarkable. IMPRESSION: No acute disease identifiable. Electronically Reviewed and Signed By Ree Whitman MD , 01/07/20 10:54, KGG Transcribe Initials: POLINA , Transcribe Date: 01/05/20 14:43, Dictation Date: Copy for: ЕЛЕНА DOTSON via fax Copy for: EMERGENCY DEPT via modem Copy for: 710 MED REC DISCHARGED Page 1 of 1 Name Value Range Interpretation Code Description Data Goldie rce(s) Supporting Document(s) ID Date Data Source [id number] 01/05/2020 12:45:00 PM EST [facility] Name Value Range Interpretation Code Description Data [facility] rce(s) Supporting Document(s) SARS coronavirus 2 RNA [facility] This lab was ordered by [facility] and reported by [facility]. ID Date Data Source [id number] 01/09/2020 06:12:00 AM EST [facility] Name Value Range Interpretation Code Description Data [facility] rce(s) Supporting Document(s) SARS-CoV-2, MARCO Detected Not Detected A [facility] This nucleic acid amplification test was developed and its performancecharacteristics determined by [facility]. Nucleic acidamplification tests include PCR and TMA. This test has not been FDAcleared or approved. This test has been authorized by FDA under anEmergency Use Authorization (EUA). This test is only authorized forthe duration of time the declaration that circumstances existjustifying the authorization of the emergency use of in vitrodiagnostic tests for detection of SARS-CoV-2 virus and/or diagnosisof COVID-19 infection under section 564(b)(1) of the Act, 21 U.S.C.360bbb-3(b) (1), unless the authorization is terminated or revokedsooner.When diagnostic testing is negative, the possibility of a falsenegative result should be considered in the context of a patient'srecent exposures and the presence of clinical signs and symptomsconsistent with COVID- 19. An individual without symptoms of COVID-19and who is not shedding SARS-CoV-2 virus would expect to have anegative (not detected) result in this assay. ID Date Data Source [id number] 01/05/2020 01:31:00 PM EST [facility] Name Value Range Interpretation Code Description Data Goldie rce(s) Supporting Document(s) Influenza virus A Ag [Presence] in Nasopharynx by [facility] y NEGATIVE NORMAL: NEGATIVE [facility] Influenza virus B Ag [Presence] in Nasopharynx by [facility] y NEGATIVE NORMAL: NEGATIVE [facility] NEGATIVENEGATIVE PROCEDURAL CO NTROL VALID KIT LOT # _[id number] 01/05/20.1330. . KIT EXP DATE _05.09.20 01/05/20. .The Influenza A & B assay is a rapid molecular in vitro diagnostic testutilizing an isothermal nucleic acid amplification technology for thequalitative detection of influenza A and B viral RNA.Negative results do not preclude influenza virus infection and should not beused as the sole basis for diagnosis, treatment or other patient managementdecisions. ID Date Data Source [id number] 01/05/2020 01:31:00 PM EST [facility] Name Value Range Interpretation Code Description Data Goldie rce(s) Supporting Document(s) RAPID STREP NEGATIVE NORMAL: NEGATIVE [facility] RAPID STREP REENTER NEGATIVE NORMAL: NEGATIVE [facility] { PROCEDURAL CONTROL VALID ){ KIT LOT # [id number] ){ KIT EXP DATE 05.25.21 )The Strep A 2 assay utilizes isothermal nucleic acid amplification technology fothe qualitative detection of Group A Strep bacterial nucleic acid in throat swabspecimens.All negative test results no longer need to be confirmed with a culture. Follow-up testing requiring a culture is necessary if clinical symptoms persist, or inthe event of an acute rheumatic fever outbreak. A culture will need to beordered by the Qualified Medical Provider.Negative results do not preclude infection with Group A Strep and should not beused as the sole basis for treatment. ID Date Data Source [id number] 11/05/2019 10:06:00 AM EDT [facility] [address] [place] [address] PHONE: [phone] FAX: [phone] Name .................. : JOHN Bennett Acct Number.................. : [id number] ROOM. ................. : TR-03 MR Number ................... : [id number] Stay type ............. : E/R Discharge Date......... ... : Admit Date ......... : 11/04/19 Admit Phys .................... : VENERUS BR Date of ....... : 1980 Family Phys ................... : UNKNOWN Phone .......... ........ : [phone] Age ................................ : 39 Film# .................. .:[id number] Sex ................................. : F Unsigned transcriptions are preliminary reports and do not represent a medical or legal document CT LUMBAR SP W/O CONT 05250 COMPLETE:11/04/19 13:35 E [id number] Reason(s): LBP SI Joint CT OF THE LUMBAR SPINE WITHOUT CONTRAST: INDICATION: Low back pain and SI joint pain. FINDINGS: Scans were obtained from the mid portion of T12 to the S2 level. Images were obtained with soft tissue and bone windows. The discs appear normal. No spinal stenosis, abnormal paravertebral process or significant degenerative changes are seen. The visualized portions of the upper aspects of the SI joints appear normal. IMPRESSION: Negative lumbosacral spine CT scan. While performing the above CT examination, radiation dose reduction was accomplished utilizing automated exposure control, adjusting of the mA and kV based on the patient's body size and/or the use of imperative reconstructive techniques. CT dose: 322.2 mGycm Electronically Reviewed and Signed By Aniket Liz M.D. , 11/05/19 10:06, [place] Transcribe Initials: POLINA , Transcribe Date: 11/04/19 14:11, Dictation Date: Copy for: [facility] via fax Copy for: EMERGENCY DEPT via modem Copy for: 710 MED REC DISCHARGED Page 1 of 1 Name Value Range Interpretation Code Description Data Goldie rce(s) Supporting Document(s) ID Date Data Source [id number] 11/04/2019 01:05:00 PM EDT [facility] 1 OrderSheet [facility] Emergency Department [address] [place] [address] Phone #: ext- [phone] 11/04/2019 12:39 Patient: JOVAN LOPEZ Sex: F : 1980 Age: 39yWEIGHT:67.5 kg (S)ALLERGIES: No Known Drug AllergyCHIEF COMPLAINT: back injury, back painDIAGNOSIS: Sacroiliac joint inflamedLAB ORDERSOrder Description Priority Entered Acknowledged InitialedDIAGNOSTIC STUDY ORDERSOrder Description Priority Entered Acknowledged InitialedCT LUMBAR SP STAT 13:11/04/2019 Ack'd: 13:22 13:29 Tuan,W/O CONT Masha Garcia RTaurusNTaurus(Oxygen?(No)) PA; R.N.(IV?(No)) Reason for Study: LBP SI JointMEDICATION/IV/DRIP/FLUID ORDERSOrder Description Priority Entered Acknowledged InitialedToradol IM 30 mg 13:21 11/04/2019 Ack'd: 13:22 13:41 Alexandro Dickerson Amber Amber R.N. PA; R.N.predniSONE PO 60 13:21 11/04/2019 Ack'd: 13:22 13:40 mg Alexandro Dickerson Amber Amber R.N. PA; R.N.Valium PO 5 mg 13:21 11/04/2019 Ack'd: 13:22 13:41 Alexandro Dickerson Amber Amber R.N. PA; R.NTaurusGENERAL ORDERSOrder Description Priority Entered Acknowledged Initialed[Electronically signed by Masha Dickerson R.N. (14:11/04/2019)][Electronically signed by Alexandro Bello (20:41 )][Electronically locked by Masha Dickerson R.N. (14:11/04/2019)] Name Value Range Interpretation Code Description Data Goldie rce(s) Supporting Document(s) ID Date Data Source [id number] 11/04/2019 01:05:00 PM EDT [facility] 1 Medication Reconciliation Report [facility] Emergency Department [address] [place] [address] Phone #: ext- [phone] 11/04/2019 12:39 Patient: JOVAN LOPEZ Sex: F : 1980 Age: 39yWeight: 67.5 kgHeight/Length: 64 in.BMI: 25.6ALLERGIES: No Known Drug AllergyThe patient's Home Medications are listed below:CONTINUE TAKING THE FOLLOWING MEDICATIONS: Ibuprofen Oral (800 mg) 1 tablet, last dose: 1899, prnThe source(s) of the original Home Medication information:Not obtained.The following Medications were given to the patient in the Emergency Department:Prednisone [PO] PO 60 mg, administered: 11/04/2019 1:35:00 PMValium [PO] PO 5 mg, administered: 11/04/2019 1:36:00 PMToradol [IM] IM 30 mg, administered: 11/04/2019 1:41:00 PMThe following Medications were prescribed to the patient:ibuprofen 800 mg tablet Take 1 tablet three times a day as needed for pain for 15 days -- Dispense 45tablet. Refills: 0. Substitution permitted.Pharmacy - [facility] - [address] ; [place] [address]. .Medrol (José Miguel) 4 mg tablets in a dose pack Take 1 tablet as directed for 6 days -- Dispense 1 pack.Refills: 0. Substitution permitted.[id number] - [address] ; [place] [address]. FaxNumber: .methocarbamol 500 mg tablet Take 1 tablet three times a day for 10 days -- Dispense 30 tablet. Refills:0. Substitution permitted.[facility] [place] #[facility] - [address] ; [place] [address]. . -- KEN Kennedy 2 Medication Reconciliation Report [facility] Emergency Department [address] [place] [address] Phone #: ext- [phone] 11/04/2019 12:39 Patient: JOVAN LOPEZ Sex: F : 1980 Age: 39y Name Value Range Interpretation Code Description Data Goldie rce(s) Supporting Document(s) ID Date Data Source [id number] 11/04/2019 01:05:00 PM EDT [facility] 1 Medication Administration Record [facility] Emergency Department [address] [place] [address] Phone #: ext- [phone] 11/04/2019 12:39 Patient: JOVAN LOPEZ Sex: F : 1980 Age: 39yWeight: 67.5 kgHeight/Length: 64 inBMI: 25.6ALLERGIES: No Known Drug Allergy Date/Time Medication Administered Medication OrderedGiven TORADOL [IM] (KETOROLAC Toradol IM 30 mg13:41 11/04/2019 TROMETHAMINE)aMsha Dickerson R.N. Dose: 30 mg IMGiven PREDNISONE [PO] predniSONE PO 60 mg13:35 11/04/2019 Dose: 60 mg Tablets Masha Rich R.N.Given VALIUM [PO] (DIAZEPAM) Valium PO 5 mg13:36 11/04/2019 Dose: 5 mg Tablets Masha Rich R.N. Name Value Range Interpretation Code Description Data Goldie rce(s) Supporting Document(s) ID Date Data Source [id number] 11/04/2019 01:05:00 PM EDT [facility] 1 General Instructions [facility] Emergency Department [address] [place] [address] Phone #: ext- [phone] 11/04/2019 12:39 Patient: JOVAN LOPEZ Sex: F : 1980 Age: 39yAcute left sided sacroiliitis.INSTRUCTIONSNo strenuous activity until released.Your Current Medications: Your current home medications have been reviewed.CONTINUE TAKING THE FOLLOWING MEDICATIONS:Ibuprofen Oral : Tablet 800 mg, 1 tablet, Last: 1900, prn.Prescription Medications:ibuprofen 800 mg tablet Take 1 tablet three times a day as needed for pain for 15 days -- Dispense 45tablet. Refills: 0. Substitution permitted.Pharmacy - [facility] - [address] ; [place] [address]. .Medrol (José Miguel) 4 mg tablets in a dose pack Take 1 tablet as directed for 6 days -- Dispense 1 pack.Refills: 0. Substitution permitted.[facility] - [address] [place] [address]. .methocarbamol 500 mg tablet Take 1 tablet three times a day for 10 days -- Dispense 30 tablet. Refills:0. Substitution permitted.[facility] - [address] [place] [address]. .Follow-up:Follow up with your doctor Tuesday. Reason for referral: evaluation, treatment and Physical Therapy andMRI if symptoms persist. Summary of care provided to patient.Understanding of the discharge instructions verbalized by patient. ADDITIONAL INFORMATIONSacroiliitisThe sacrum is the triangle-shaped bone at the base of the spine. It is linked to the other pelvis bones 2 General Instructions [facility] Emergency Department [address] [place] [address] Phone #: ext- [phone] 11/04/2019 12:39 Patient: JOVAN LOPEZ Sex: F : 1980 Age: 39yby the sacroiliac joints, also called SI joints. Sacroiliitis is when one or both SI joints are hurt orinflamed. It can make small movements of the lower back and pelvis very painful.This condition has been linked to other diseases. They include ankylosing spondylitis, rheumatoidarthritis, psoriasis, and Crohn's disease or colitis. Symptoms may include pain or stiffness in the hips,lower back, thighs, or buttocks. Pain occurs most often in the morning or after sitting for long periodsof time. The pain may get worse when you walk. The swinging motion of the hips strains the SI joints.Sacroiliitis is caused by many factors such as: Heavy lifting, especially if not done the right way Severe injury, such as a fall or car accident Osteoarthritis Infection of the jointThis condition is hard to diagnose. It may be confused with other causes of low back pain. To confirmthe diagnosis, you may be given a shot of numbing medicine in the SI joint. Treatment includes rest,physical therapy, and anti-inflammatory medicines. If another health problem is the cause, then thatmust also be treated. More testing may be needed if your symptoms don't get better.Home care If your healthcare provider has prescribed medicines, take them as directed. You may use rsex-mdt-lkgaiyw pain medicine to control pain, unless another medicine was prescribed. If prednisone was prescribed, don't use NSAIDs, or nonsteroidal anti-inflammatory drugs, such as ibuprofen or naproxen. Talk with your provider before using this medicine if you have chronic liver or kidney disease or ever had a stomach ulcer or gastrointestinal bleeding. If you were referred to physical therapy, make an appointment. Be sure to do any prescribed exercises. Don't smoke. Smoking reduces blood flow to the inflamed area. This makes it harder to treat. Talk with your doctor if you need help quitting.Follow-up careFollow up with your healthcare provider, or as advised.If you had an X-ray or an MRI, you will be notified of any new findings that may affect your care.When to seek medical advice 3 General Instructions [facility] Emergency Department [address] [place] [address] Phone #: ext- [phone] 11/04/2019 12:39 Patient: JOVAN LOPEZ Sex: F : 1980 Age: 39yContact your healthcare provider right away if any of these occur: Increasing low back pain Inflammation of the eyes Skin rash or redness Weakness or numbness in one or both legs Loss of bowel or bladder control Numbness in the groin area [id number] [employer]. [address] [place] [address]13. All rights reserved. This information is not intended as asubstitute for professional medical care. Always follow your healthcare professional's instructions. You have been given the following additional information: Sacroiliitis No strenuous activity until released.(Electronically signed by KEN Kennedy 11/04/2019 20:41) Name Value Range Interpretation Code Description Data Goldie rce(s) Supporting Document(s) ID Date Data Source [id number] 11/04/2019 01:05:00 PM EDT [facility] 1 Clinical Report - Nurses [facility] Emergency Department [address] [place] [address] Phone #: ext- [phone] 11/04/2019 12:39 Patient: JOVAN LOPEZ Sex: F : 1980 Age: 39yTRIAGEArrived by private vehicle. Historian: patient.Triage time: 12:57 11/04/2019. Acuity: LEVEL 3.Chief Complaint: BACK PAIN.12:57 11/04/19. Alert. No acute distress.Onset. (8 days ago). ( Left low back pain). No history of recent trauma.Treatment RING SPINNER:Took ibuprofen. (800 mg po at 1 900).SEPSIS SCREEN: SIRS Screen negative. Sepsis Screen negative. No suspected or confirmed signs ofinfection present. --13:03 11/04/19 Iram Lo RN12:57 11/04/19. BP: 100/75. MAP: 83. HR: 84. RR: 14. O2 saturation: 100%. Temp: 98.2 F. Pain levelnow: 11/30. --13:03 11/04/19 Iram Lo RN.Weight: 67.5 kg stated. Height/Length: 64 inches Per Patient. BMI: 25.6. --12:56 11/04/19 FRANKIE Alejandra.MedicationsIbuprofen Oral (Tablet 800 mg) 1 tablet, as needed, last dose 1900. --13:01 11/04/19 Iram Lo RN.AllergiesNo Known Drug Allergy. --13:01 11/04/19 Iram Lo RN.PROBLEMS:no known problems.ADDITIONAL SURGERIES:no known surgeries.Wnwnrgy70:57 11/04/19.PAST MEDICAL HX: Tetanus status: up-to-date. Immunizations: up-to-date. Last normal menstrualperiod- Oct 11.SOCIAL HX: Never smoker. No alcohol use or drug use. She was offered HIV testing but declined andhepatitis C testing but declined. She has not traveled outside the [place] 2 Clinical Report - Nurses [facility] Emergency Department [address] [place] [address] Phone #: ext- [phone] 11/04/2019 12:39 Patient: JOVAN LOPEZ Sex: F : 1980 Age: 39y Infectious disease exposure: No infectious disease exposure. (Denies contact with PUI for COVID-19, denies symptoms of COVID-19). Patient is not a known carrier of tuberculosis, hepatitis, HIV, MRSA or VRE. Patient is not a known carrier of CRE. SELF HARM ASSESSMENT: Self harm assessment was performed. The patient answered "no" to the question(s) "Do you have thoughts of harming or killing yourself?" and "Have you recently had thoughts about harming or killing others?". ABUSE ASSESSMENT: Abuse assessment. The patient had positive responses to the question(s) "Do you feel safe in your home?" (yes). Abuse denied. No suspicion of abuse. No report of abuse. NUTRITIONAL RISK ASSESSMENT: The nutritional risk assessment revealed no deficiencies. FUNCTIONAL ASSESSMENT: Functional assessment: no impairments noted. LEARNING NEEDS ASSESSMENT: The learning needs assessment revealed no barriers. FALL RISK ASSESSMENT: Fall risk assessment completed. No risk factors identified. SKIN INTEGRITY ASSESSMENT: Skin integrity risk assessment completed. No skin integrity risk identified. --13:03 11/04/19 Iram Lo RN.PHYSICAL HHTJAAAVEX62:02 11/04/19. Ambulatory to room.GENERAL / NEURO / PSYCH: Alert. Oriented X 4. Appears in pain.RESPIRATORY: Respirations not labored. Chest nontender.CVS: Normal heart rate and rhythm.GI / : Abdomen nontender.EXTREMITIES: Sensation intact in extremities. ROM of extremities within normal limits.BACK: Normal inspection of the neck and back. Limited ROM of the back. Soft tissue tenderness in theleft lower lumbar paraspinous region. --13:04 11/04/19 Iram Lo RN.NURSING PROGRESS NOTES13:03 11/04/19. Patient gowned. Two patient identifiers checked. Call light placed in reach. Side railsup. Bed placed in lowest position. Brakes of bed on. Patient ready for evaluation- ED physician and PAnotified. --13:04 11/04/19 Iram Lo RN Patient transported to CT by wheelchair with mask and telecommunications switch technician. --13:26 11/04/19 Masha Dickerson R.N. Patient returned from CT by wheelchair with mask and telecommunications switch technician. --13:34 11/04/19 Masha Dickerson R.N. 13:35 11/04/2019 Prednisone PO Tablets 60 mg given. Allergies verified and confirmed 5 rights. 3 Clinical Report - Nurses [facility] Emergency Department [address] [place] [address] Phone #: ext- [phone] 11/04/2019 12:39 ---- Patient: JOVAN LOPEZ Sex: F : 1980 Age: 39y Information reviewed with patient including reason for taking this medication, signs of allergic reaction and precautions. Verbalizes understanding. --13:40 11/04/19 Masha Dickerson R.N. 13:36 11/04/2019 Valium (diazePAM) PO Tablets 5 mg given. Allergies verified and confirmed 5 rights. Information reviewed with patient including reason for taking this medication, signs of allergic reaction, precautions and sedative warning. Verbalizes understanding. --13:41 11/04/19 Masha Dickerson R.N. 13:41 11/04/2019 Toradol (Ketorolac Tromethamine) IM 30 mg given. Given in the left deltoid. Allergies verified and confirmed 5 rights. Information reviewed with patient including reason for taking this medication, signs of allergic reaction and precautions. Verbalizes understanding. --13:41 11/04/19 Masha Dickerson R.N. Patient gowned. Reassurance given. The patient reports no complaints and she is calm and resting quietly. GENERAL / NEURO / PSYCH: Alert. Oriented X 4. RESPIRATORY: No respiratory distress. Patient waiting for CT results. --14:05 11/04/19 Masha Dickerson R.N. 14:08 11/04/19. BP: 99/66. MAP: 77. HR: 66. RR: 16. O2 saturation: 99% on room air. --14:11/04/19 Masha Dickerson R.N.DISPOSITION / DISCHARGE 14:15 11/04/19. Departure time: 14:15 11/04/2019. Condition at departure: improved. No learning barriers present. Discharge instructions provided and reviewed with the patient. Reviewed warnings. Reviewed medication(s) side effects, precautions, dosing and course information. Prescription(s) sent electronically to pharmacy (Medrol, ibuprofen, methocarbamol). Reviewed referral to a primary care physician for followup. Work note given. Patient verbalized understanding. Written instructions provided in [place]raini. The patient was discharged by the physician water quality assistant. She was discharged home and accompanied by family. She left ambulatory and via private vehicle. Family member driving. --14:19 11/04/19 Masha Dickerson R.N. 14:15 11/04/19. BP: 98/66. MAP: 76. HR: 65. RR: 16. O2 saturation: 100% on room air. Temp: 97.2 F. Pain level now: 04/02. --14:19 11/04/19 Masha Dickerson R.N.Locked/Released at 11/04/2019 14:19 by Masha Dickerson R.N. Name Value Range Interpretation Code Description Data Goldie rce(s) Supporting Document(s) ID Date Data Source [id number] 11/04/2019 01:05:00 PM EDT [facility] 1 Clinical Report - Physicians/Mid Levels [facility] Emergency Department [address] [place] [address] Phone #: ext- [phone] 11/04/2019 12:39 Patient: JOVAN LOPEZ Sex: F : 1980 Age: 39y Time Seen: 13:15 11/04/2019. Arrived- By private vehicle. Historian- patient.HISTORY OF PRESENT ILLNESS Chief Complaint: BACK INJURY and BACK PAIN. Onset- 8 days ago; pt was deadlifting initially and pain was better then returned and it is still present. It was gradual in onset and has been constant. It is described as being moderate in degree and in the area of the left lower lumbar spine, left SI joint and lower lumbar spine. The quality is noted to be aching, "pain" and similar to prior episodes. No bladder dysfunction, bowel dysfunction, sensory loss or motor loss. Patient notes the possibility of an injury. Similar symptoms previously. Patient has had similar symptoms twice. Recent medical care: Not recently seen/assessed.REVIEW OF SYSTEMSLast normal menstrual period- Oct 11, pt took ept this AM and it was negative. Sexual history - sexuallyactive. Uses condoms. No fever, chills, eye irritation, difficulty with urination or urinary frequency. Nohematuria, skin rash, headache, depression or sore throat. No cough, difficulty breathing, chest pain,abdominal pain or nausea. No vomiting, diarrhea, black stools or bloody stools.PAST HISTORYThe patient has had prior back pain. Additional Surgeries: no known surgeries. Medications: Ibuprofen Oral (Tablet 800 mg) 1 tablet, as needed, last dose 0. Allergies: No Known Drug Allergy.SOCIAL HISTORYNever smoker. No alcohol use or drug use.PHYSICAL EXAMVital Signs: 11/04/2019 12:57 BP: 100/75. MAP: 83. HR: 84. RR: 14. O2 saturation: 100%. Temp: 98.2 F.Pain level now: 11/30. Have been reviewed as normal. Oxygen saturation normal.Appearance: Alert. No acute distress.HEENT: Normal external inspection.Eyes: Pupils equal, round and reactive to light. 2 Clinical Report - Physicians/Mid Levels [facility] Emergency Department [address] [place] [address] Phone #: ext- [phone] 11/04/2019 12:39 ----- Patient: JOVAN LOPEZ Sex: F : 1980 Age: 39y ENT: Ears normal. Pharynx normal. Neck: Normal inspection. Neck nontender. Painless ROM. CVS: Heart sounds normal. Respiratory: No respiratory distress. Abdomen: No visible injury. Back: Muscle spasm of the back. Mild vertebral point tenderness over the lower lumbar spine. Soft tissue tenderness. Limited ROM in the back. No CVA tenderness. (pos ttp left SI joint). Skin: Skin warm and dry. Normal skin color. No rash. Normal skin turgor. Extremities: Extremities exhibit normal ROM. Extremities nontender. Neuro: Oriented X 3.LABS, X-RAYS, AND EKGCT L-Spine: No acute findings. The study was interpreted by the radiologist and contemporaneously byme. Interpretation time: 14:11/04/2019.PROGRESS AND PROCEDURESCourse of Care: 14:Nov 04 [address] scan. (Discussed exam findings, dx and tx planand pt is agreeable with dx and tx plan.). Patient counseled in person regarding the patient's stable condition, test results, diagnosis and need for follow-up. Patient agrees with plan of care. :Nov 04 2019. Disposition: Discharged home in good and improved condition (:Nov 04 2019).CLINICAL IMPRESSION Acute left sided sacroiliitis.INSTRUCTIONS No strenuous activity until released. Your Current Medications: Your current home medications have been reviewed. CONTINUE TAKING THE FOLLOWING MEDICATIONS: Ibuprofen Oral : Tablet 800 mg, 1 tablet, Last: 1900, prn. Prescription Medications: ibuprofen 800 mg tablet Take 1 tablet three times a day as needed for pain for 15 days -- Dispense 45 tablet. Refills: 0. Substitution permitted. [facility] - [address] ; [place] [address]. . 3 Clinical Report - Physicians/Mid Levels [facility] Emergency Department [address] [place] [address] Phone #: ext- [phone] 11/04/2019 12:39 Patient: JOVAN LOPEZ Sex: F : 1980 Age: 39y Medrol (José Miguel) 4 mg tablets in a dose pack Take 1 tablet as directed for 6 days -- Dispense 1 pack. Refills: 0. Substitution permitted. [facility] - [address] [place] [address]. . methocarbamol 500 mg tablet Take 1 tablet three times a day for 10 days -- Dispense 30 tablet. Refills: 0. Substitution permitted. [facility] - [address] [place] [address]. . Follow-up: Follow up with your doctor Tuesday. Reason for referral: evaluation, treatment and Physical Therapy and MRI if symptoms persist. Summary of care provided to patient. Understanding of the discharge instructions verbalized by patient.(Electronically signed by KEN Kennedy 11/04/2019 20:41) Name Value Range Interpretation Code Description Data Goldie rce(s) Supporting Document(s) Procedure
--- NOTE | 2020-04-13 15:03 | REP ---
INDICATION: r pelvic pain, hx of fibroids, +home preg test. COMPARISON: None. TECHNIQUE: Transabdominal and endovaginal probes FINDINGS: Both trans abdominal and endovaginal probes were utilized. The uterus is anteverted and measures 8.6 x 6.3 x 6.4 cm. In the fundus towards the left side is a small fluid collection 3 x 4 x 4 mm. This may suggest a gestational sac which would give a mean sac diameter of 3.4 mm or 4 weeks 6 days. Right side on Ev probe shows a uterine fibroid at 3.3 x 3.2 x 3.3 cm. The right ovary is enlarged at 4.4 x 3.2 x 3.1 cm. Within is a hyperechoic area 3.9 x 2.4 x 2.7 cm cm that may reflect an hemorrhagic corpus luteum cyst. Trace pelvic free fluid. Left ovary 2.2 x 1.8 x 1.7 cm without adjacent free fluid or ovarian lesion. Doppler tracings for both ovarian arteries show resistive index 0.53, no torsion. IMPRESSION: Findings suggest a gestational sac in the uterine fundus with mean sac diameter 3.4 mm corresponding to 4 weeks 6 days, no yolk sac or pole identified at this time. Findings suggest a hemorrhagic corpus luteum in the right ovary with trace free fluid adjacent but no evidence for torsion. Left ovary unremarkable. Recommend follow-up with beta HCG and repeat ultrasound 8-10 days. <Electronically signed by Edin Silver > 04/13/20 1500
[2020-04-13 15:12] LABS: ALT/SGPT 38 U/L (12-78); BILIRUBIN,DIRECT < 0.1 MG/DL (0.0-0.2); BILIRUBIN,TOTAL 0.4 MG/DL (0.2-1.0); BLOOD UREA NITROGEN 9 MG/DL (7-18); CARBON DIOXIDE LEVEL 24 MEQ/L (21-32); CHLORIDE LEVEL 104 MEQ/L (98-107); CREATININE FOR GFR 0.87 MG/DL (0.55-1.30); GLOMERULAR FILTRATION RATE > 60.0 (>60); GLUCOSE, FASTING 80 MG/DL (70-100); HCG, SERUM QUANTITATIVE 2418 MIU/ML; LIPASE 95 U/L (73-393); POTASSIUM SERUM 4.1 MEQ/L (3.5-5.1); SODIUM LEVEL 136 MEQ/L (136-145); TOTAL PROTEIN 7.8 GM/DL (6.4-8.2)
[2020-04-13 15:15] VITALS: BP 102/68
== END 2020-04-13 15:24 | disposition home or self-care (01) ==
LOC: M ED 13:20
DX: N83.291 Other ovarian cyst, right side (principal); D25.9 Leiomyoma of uterus, unspecified; Z3A.01 Less than 8 weeks gestation of pregnancy; F17.210 Nicotine dependence, cigarettes, uncomplicated

== ENCOUNTER → 2020-04-15 | Outpatient (CLI) | payer OTHER | LOC: M LAB 15:36 | PROVIDERS: ATTEND Physician Assistant Medical | DX: N83.291 Other ovarian cyst, right side (principal) ==

== ENCOUNTER 2020-05-14 10:36 | Emergency (ER) | payer OTHER ==
[~2020-05-14] VITALS: Ht 162.6 cm; Wt 71.6 kg
[2020-05-14] MEDS ORDERED: MULTTAB20 PO (10:45)
[2020-05-14] MEDS ORDERED: ONDANSETRON 4MG/2ML VIAL IV ONE (11:00)
[2020-05-14] MEDS ORDERED: NS 1,000 ML IV ONE (11:00)
--- NOTE | 2020-05-14 11:44 | REP ---
INDICATION: rlq pain. COMPARISON: Comparison study April 13, 2020.. TECHNIQUE: Trans abdominal scanning is performed. FINDINGS: A right-sided hypoechoic a uterine fibroid is seen 2.7 cm in greatest diameter. There is a twin intrauterine gestation. Embryonic pole of fetus a measures 2.2 cm and that of fetus B 1.9 cm in crown-rump length. These correspond with gestational age estimate of 8 weeks 6 days an 8 weeks 3 days respectively. heart rate for twin a is 174 and that for twin B is also recorded at 174 beats per minute. No extra uterine abnormality is observed. No complication is seen. IMPRESSION: Viable twin intrauterine gestation at 8 weeks 5 days by crown-rump length. EDWIN by sonography 19 December 2020. No complication seen. <Electronically signed by Martinez Wade > 05/14/20 [id number]
[2020-05-14 11:45] LABS: BASO % 0.4 % (0.0-1.0); EOS % 0.4 % (0.0-3.0); HEMATOCRIT 34.5 % (36.0-47.0); HEMOGLOBIN 11.8 g/dl (12.0-15.5); LYMPH # 1.3 10^3/uL (1.5-5.0); LYMPH % 16.4 % (24.0-44.0); MEAN CORPUSCULAR HEMOGLOBIN 32.3 pg (27.0-33.0); MEAN CORPUSCULAR HGB CONC 34.2 g/dl (32.0-36.5); MEAN CORPUSCULAR VOLUME 94.5 fl (80.0-96.0); MONO # 0.5 10^3/uL (0.0-0.8); MONO % 6.6 % (2.0-8.0); NEUTROPHILS # 6.1 10^3/uL (1.5-8.5); NEUTROPHILS % 75.8 % (36.0-66.0); PLATELET COUNT, AUTOMATED 274 10^3/uL (150-450); RED BLOOD COUNT 3.65 10^6/uL (4.00-5.40)
[2020-05-14 12:28] LABS: ALBUMIN 3.3 GM/DL (3.2-5.2); ALT/SGPT 31 U/L (12-78); BILIRUBIN,DIRECT 0.1 MG/DL (0.0-0.2); BILIRUBIN,TOTAL 0.3 MG/DL (0.2-1.0); BLOOD UREA NITROGEN 8 MG/DL (7-18); CALCIUM LEVEL 9.1 MG/DL (8.5-10.1); CARBON DIOXIDE LEVEL 21 MEQ/L (21-32); CHLORIDE LEVEL 106 MEQ/L (98-107); CREATININE FOR GFR 0.64 MG/DL (0.55-1.30); GLOMERULAR FILTRATION RATE > 60.0 (>60); GLUCOSE, FASTING 87 MG/DL (70-100); HCG, SERUM QUANTITATIVE 136330 MIU/ML; LIPASE 53 U/L (73-393); POTASSIUM SERUM 4.6 MEQ/L (3.5-5.1); SODIUM LEVEL 136 MEQ/L (136-145)
[2020-05-14] MEDS ORDERED: CEPH500C PO (13:27)
[2020-05-14] MEDS ORDERED: ONDA4TAB6 PO (13:28)
[2020-05-14 13:43] VITALS: BP 106/65
== END 2020-05-14 13:50 | disposition home or self-care (01) ==
LOC: M ED 10:36
DX: O21.9 Vomiting of pregnancy, unspecified (principal); O23.41 Unspecified infection of urinary tract in pregnancy, first trimester; O30.001 Twin pregnancy, unspecified number of placenta and unspecified number of amniotic sacs, first trimester; Z3A.08 8 weeks gestation of pregnancy
CPT/HCPCS: 76801; 76802; 80047; 80048; 80076; 81001; 83690; 84702; 85025; 86850; 86900; 86901; 87088; 87186; 93976; 96361; 96374; 99284; J2405

== ENCOUNTER 2020-06-21 13:53 | Emergency (ER) | payer OTHER ==
[~2020-06-21] VITALS: Ht 162.6 cm; Wt 75.6 kg
[~2020-06-21 13:53] MED LIST: CEPH500C PO; MULTTAB20 PO; ONDA4TAB6 PO
[2020-06-21] MEDS ORDERED: NS 1,000 ML IV ONE ×2 (15:30→19:10)
[2020-06-21] MEDS ORDERED: ACETAMINOPHEN 500 MG TAB PO ONE (15:30)
[2020-06-21] MEDS ORDERED: METOCLOPRAMIDE INJ 10MG/2ML VIAL (J2765 PER 1) IV ONE (15:30)
--- NOTE | 2020-06-21 16:27 | REP ---
INDICATION: R sided pelvic pain, 15 weeks preg, no bleeding COMPARISON: 05/14/2020 TECHNIQUE: Transabdominal obstetrical ultrasound with color Doppler evaluation. FINDINGS: Examination demonstrates early diamniotic dichorionic twin gestation. No evidence for subchorionic hemorrhage. Incidental posterior intramural fibroid measures 3.9 x 5.0 x 3.6 cm. Gestational age by LMP 15 weeks 2 days with EDWIN 12/11/2020. Gestational age by 1st ultrasound 14 weeks 1 day with EDWIN 12/19/2020. TWIN A FHR equals 163 beats per minute. Amniotic fluid volume is normal. Grade 0 placenta identified posteriorly without previa. TWIN B FHR equals 156 beats per minute. Amniotic fluid volume is normal. Grade 0 placenta identified posteriorly and without previa. IMPRESSION: Normal early diamniotic dichorionic twin gestation. <Electronically signed by Power Koch > 06/21/20 [id number]
[2020-06-21] MEDS ORDERED: MULTIVITAMIN -ADULT INJECTION 10 ML, THIAMINE INJection 100 MG, FOLIC ACID 1 MG in NS 1... IV ONE (18:55)
[2020-06-21 19:33] LABS: BASO % 0.3 % (0.0-1.0); EOS # 0.1 10^3/uL (0.0-0.5); EOS % 0.4 % (0.0-3.0); HEMATOCRIT 27.8 % (36.0-47.0); HEMOGLOBIN 9.4 g/dl (12.0-15.5); LYMPH # 1.8 10^3/uL (1.5-5.0); LYMPH % 16.4 % (24.0-44.0); MEAN CORPUSCULAR HEMOGLOBIN 32.4 pg (27.0-33.0); MEAN CORPUSCULAR HGB CONC 33.8 g/dl (32.0-36.5); MEAN CORPUSCULAR VOLUME 95.9 fl (80.0-96.0); MONO # 0.4 10^3/uL (0.0-0.8); MONO % 3.8 % (2.0-8.0); NEUTROPHILS # 8.7 10^3/uL (1.5-8.5); PLATELET COUNT, AUTOMATED 240 10^3/uL (150-450); WHITE BLOOD COUNT 11.2 10^3/uL (4.0-10.0)
[2020-06-21 19:45] LABS: INR 1.03; PROTHROMBIN TIME 13.7 SECONDS (12.5-14.3)
[2020-06-21 19:46] LABS: PARTIAL THROMBOPLASTIN TIME 28.7 SECONDS (24.2-38.5)
[2020-06-21 19:49] LABS: ALBUMIN 2.6 GM/DL (3.2-5.2); ALT/SGPT 17 U/L (12-78); BILIRUBIN,DIRECT < 0.1 MG/DL (0.0-0.2); BILIRUBIN,TOTAL 0.2 MG/DL (0.2-1.0); BLOOD UREA NITROGEN 10 MG/DL (7-18); CALCIUM LEVEL 8.6 MG/DL (8.5-10.1); CARBON DIOXIDE LEVEL 21 MEQ/L (21-32); CHLORIDE LEVEL 108 MEQ/L (98-107); CREATININE FOR GFR 0.56 MG/DL (0.55-1.30); GLOMERULAR FILTRATION RATE > 60.0 (>60); GLUCOSE, FASTING 136 MG/DL (70-100); LIPASE 60 U/L (73-393); POTASSIUM SERUM 3.5 MEQ/L (3.5-5.1); SODIUM LEVEL 139 MEQ/L (136-145); TOTAL PROTEIN 5.9 GM/DL (6.4-8.2)
[2020-06-21 22:12] VITALS: BP 111/65
== END 2020-06-21 22:14 | disposition home or self-care (01) ==
LOC: M ED 13:53
DX: R51.9 Headache, unspecified (principal); D25.9 Leiomyoma of uterus, unspecified; Z3A.15 15 weeks gestation of pregnancy
CPT/HCPCS: 76815; 80048; 80076; 81001; 83690; 85025; 85610; 85730; 96361; 96365; 96366; 96375; 99284; J2765; J3411

== ENCOUNTER 2020-08-08 11:03 | Outpatient (CLI) | payer OTHER ==
[~2020-08-08] VITALS: Ht 162.6 cm; Wt 89.3 kg
[2020-08-08 11:19] VITALS: BP 102/65
[2020-08-08] MEDS ORDERED: ECOT81TA5 PO (11:23)
[2020-08-08] MEDS ORDERED: ACET-907 PO (11:24)
[2020-08-08] MEDS ORDERED: FERR325T3 PO (11:24)
[2020-08-08] MEDS ORDERED: COLA100C5 PO (11:24)
[2020-08-08 13:11] LABS: APPEARANCE, URINE CLEAR (CLEAR); BACTERIA, URINE AUTO NEGATIVE (NEGATIVE); BILIRUBIN, URINE AUTO NEGATIVE (NEGATIVE); BLOOD, URINE BLOOD NEGATIVE (NEGATIVE); COLOR, URINE YELLOW (YELLOW); GLUCOSE, URINE (UA) AUTO NEGATIVE (NEGATIVE); KETONE, URINE AUTO NEGATIVE (NEGATIVE); LEUKOCYTE ESTERASE, URINE AUTO NEGATIVE (NEGATIVE); MUCUS, URINE SMALL (NEGATIVE); NITRITE, URINE AUTO NEGATIVE (NEGATIVE); PROTEIN, URINE AUTO NEGATIVE (NEGATIVE); RBC, URINE AUTO 0 /HPF (0-3); SPECIFIC GRAVITY URINE AUTO 1.018 (1.002-1.035); SQUAMOUS EPITHELIAL CELL UR AU 0 /HPF (0-6); UROBILINOGEN, URINE AUTO 0.2 mg/dL (0.0-2.0); WBC, URINE AUTO 2 /HPF (0-3)
[2020-08-08 15:47] VITALS: BP 124/62
--- NOTE | 2020-08-08 17:32 | REP ---
INDICATION: WGT, SONJA,POSITION, AND CERVICAL LENGTH. COMPARISON: None. TECHNIQUE: Transabdominal FINDINGS: Multiple ultrasonographic images of fetus A shows a living intrauterine gestation in the transverse head maternal right position. The placenta is posterior and not low-lying. The cervix measures 2.7 cm in length and is closed. Doppler interrogation of the heart is a heart rate of 149 beats per minute. The subjective amniotic fluid volume is within normal limits. BPD: 5.1 cm 21 weeks feet days HC: 18.2 cm 20 weeks 4 days AC: 16.7 cm 21 weeks 5 days FL: 3.7 cm 21 weeks 5 days The estimated weight is 437 g no percentile was calculated Doppler interrogation of the umbilical artery shows an AB ratio of 3.95. This is within the normal range The anatomical screen was incomplete though no anomalies were detected Fetus B: Multiple sonographic images show a living intrauterine gestation in the breech presentation Doppler interrogation of the heart is a heart rate of 152 beats per minute. The subjective amniotic fluid volume is within normal limits. Doppler interrogation of the umbilical artery shows an AB ratio of 4.5. This is within the normal range BPD: 4.7 cm 20 weeks 2 days HC: 18.2 cm 20 weeks 4 days AC: 17.1 cm 20 weeks 1 day FL: 3.5 cm 21 1 week The estimated weight is 428 g. No percentage was calculated. The anatomical screen was markedly incomplete although no anomalies were detected Note is made of a 4.8 x 4.1 x 6 cm sized round solid nodule in the uterus posteriorly suggesting myomatous change IMPRESSION: Twin gestation as described above. The anatomical screen is incomplete needs to be repeated. All none of fetus A's anatomy could be confirmed. The estimated gestational was not calculated by the technologist for either fetus. <Electronically signed by Blane Sellers > 08/08/20 1328
--- NOTE | 2020-08-08 18:51 | IPNPDOC ---
Text Note Date of Service The patient was seen on 08/08/20. NOTE Item Value Date Time Bedside Glucose (Misc Panel) 74 MG/DL 08/08/20 1212 Item Value Date Time Urine Color YELLOW 08/08/20 1217 Urine Appearance CLEAR 08/08/20 1217 Urine pH 7.0 UNITS 08/08/20 1217 Urine Specific [place] 1.018 08/08/20 1217 Urine Protein NEGATIVE mg/dL 08/08/20 1217 Urine Glucose (Auto)(UA) NEGATIVE mg/dL 08/08/20 1217 Urine Ketones (Auto) NEGATIVE mg/dL 08/08/20 1217 Urine Blood NEGATIVE 08/08/20 1217 Urine Nitrite NEGATIVE 08/08/20 1217 Urine Bilirubin NEGATIVE 08/08/20 1217 Urine Urobilinogen 0.2 mg/dL 08/08/20 1217 Urine Leukocyte Esterase (Auto) NEGATIVE 08/08/207 Urine WBC (Auto) 2 /HPF 08/08/20 1217 Urine RBC (Auto) 0 /HPF 08/08/20 1217 Urine Hyaline Casts (Auto) 0 /LPF 08/08/20 1217 Urine Bacteria (Auto) NEGATIVE 08/08/207 Urine Squamous Epithelial Cells 0 /HPF 08/08/20 1217 Urine Mucus (Auto) SMALL 08/08/20 1217 39 yo G2 P 1 LMP03/05/20 EDC 12/19/20 SEEN IN TRIAGE FOR CONTRACTIONS NO VAGINAL BLEEDING NO DISCHARGE . HAS NOT NAD ANYTHING TO EAT OR DRINK TODAY. PAST HISTORY 03/2006 38 WEEKS PRE E CS 4LBS 14 OZ . RISK FACTORS 1 AMA 2 DI/DI TWINS 3 PRIOR CS 4 HX PRE E PLAN OF CARE URINE US ASSESSMENT HYDRATE US DI/DI TWINS APPROPRIATE GROWTH FOR 20 WEEKS TWIN A 15 GRAMS MEASURE 21,4 WEEKS TWIN B 15 OZ MEASURE 21.0 WEEKS . CERVICAL LENGTH 2.7 CM NO FUNNELING . DISCHARGE UNDELIVERED NAME: JOVAN LOPEZ DATE OF : 1980 AGE: 39 SEX: F REPORT #: [id number] ROOM: [facility] TECHNOLOGIST: [facility] DOCTOR: Jasbir Rice MD Ordered for Date&Time: 08/08/20 1532 cc: [~ rep ct ivnm] Service Date&Time: 08/08/20 1610 EXAMINATION REQUESTED: US OBS SINGEL GEST REASON FOR PATIENT VISIT: LABOR CHECK REASON FOR EXAM/COMMENT: WGT, SONJA,POSITION, AND CERVICAL LENGTH INDICATION: WGT, SONJA,POSITION, AND CERVICAL LENGTH. COMPARISON: None. TECHNIQUE: Transabdominal FINDINGS: Multiple ultrasonographic images of fetus A shows a living intrauterine gestation in the transverse head maternal right position. The placenta is posterior and not low-lying. The cervix measures 2.7 cm in length and is closed. Doppler interrogation of the heart is a heart rate of 149 beats per minute. The subjective amniotic fluid volume is within normal limits. BPD: 5.1 cm 21 weeks feet days HC: 18.2 cm 20 weeks 4 days AC: 16.7 cm 21 weeks 5 days FL: 3.7 cm 21 weeks 5 days The estimated weight is 437 g no percentile was calculated Doppler interrogation of the umbilical artery shows an AB ratio of 3.95. This is within the normal range The anatomical screen was incomplete though no anomalies were detected Fetus B: Multiple sonographic images show a living intrauterine gestation in the breech presentation Doppler interrogation of the heart is a heart rate of 152 beats per minute. The subjective amniotic fluid volume is within normal limits. Doppler interrogation of the umbilical artery shows an AB ratio of 4.5. This is within the normal range BPD: 4.7 cm 20 weeks 2 days HC: 18.2 cm 20 weeks 4 days AC: 17.1 cm 20 weeks 1 day FL: 3.5 cm 21 1 week The estimated weight is 428 g. No percentage was calculated. The anatomical screen was markedly incomplete although no anomalies were detected Note is made of a 4.8 x 4.1 x 6 cm sized round solid nodule in the uterus posteriorly suggesting myomatous change IMPRESSION: Twin gestation as described above. The anatomical screen is incomplete needs to be repeated. All none of fetus A's anatomy could be confirmed. The estimated gestational was not calculated by the technologist for either fetus. <Electronically VS,Fishbone, I+O VS, Fishbone, I+O Vital Signs Date Time Temp Pulse Resp B/P (MAP) Pulse Ox O2 Delivery O2 Flow Rate FiO2 08/08/20 15:47 100 124/62 (82) 08/08/20 11:19 98.6 18 Room Air Jasbir Rice MD Aug 08, 2020 18:43
== END 2020-08-08 18:40 | disposition home or self-care (01) ==
LOC: M LDO 11:03
PROVIDERS: ATTEND Obstetrics & Gynecology
DX: O47.02 False labor before 37 completed weeks of gestation, second trimester (principal); Z3A.20 20 weeks gestation of pregnancy; O30.042 Twin pregnancy, dichorionic/diamniotic, second trimester; Z87.59 Personal history of other complications of pregnancy, childbirth and the puerperium; O09.522 Supervision of elderly multigravida, second trimester
CPT/HCPCS: 76811; 76812; 76817; 81001; G0378; G0463

== ENCOUNTER 2020-08-27 19:51 | Outpatient (CLI) | payer OTHER ==
[~2020-08-27] VITALS: Ht 162.6 cm; Wt 85.1 kg
[~2020-08-27 19:51] MED LIST changes: +ACET-907 PO; +COLA100C5 PO; +ECOT81TA5 PO; +FERR325T3 PO
[2020-08-27 20:10] VITALS: BP 108/59
[2020-08-27] MEDS ORDERED: FIORICET TAB PO ONE (20:45)
[2020-08-27] MEDS ORDERED: NS 1,000 ML IV ONE (22:05)
[2020-08-27 22:18] VITALS: BP 109/62
[2020-08-27 22:35] LABS: HEMATOCRIT 31.3 % (36.0-47.0); MEAN CORPUSCULAR HEMOGLOBIN 32.3 pg (27.0-33.0); MEAN CORPUSCULAR HGB CONC 31.9 g/dl (32.0-36.5); PLATELET COUNT, AUTOMATED 251 10^3/uL (150-450)
[2020-08-27 23:01] LABS: ALBUMIN 2.5 GM/DL (3.2-5.2); ALT/SGPT 41 U/L (12-78); BILIRUBIN,TOTAL 0.1 MG/DL (0.2-1.0); BLOOD UREA NITROGEN 7 MG/DL (7-18); CALCIUM LEVEL 8.5 MG/DL (8.5-10.1); CARBON DIOXIDE LEVEL 22 MEQ/L (21-32); CHLORIDE LEVEL 106 MEQ/L (98-107); CREATININE FOR GFR 0.61 MG/DL (0.55-1.30); GLOMERULAR FILTRATION RATE > 60.0 (>60); GLUCOSE, FASTING 92 MG/DL (70-100); SODIUM LEVEL 136 MEQ/L (136-145); TOTAL PROTEIN 6.3 GM/DL (6.4-8.2)
[2020-08-27 23:39] LABS: CREATININE,RANDOM URINE 61.4 MG/DL; TOTAL PROTEIN,RANDOM URINE 5.7 MG/DL (0.0-12.0)
[2020-08-27 23:43] VITALS: BP 96/62
--- NOTE | 2020-08-28 | IPNPDOC ---
Obstetrical Progress Note Date of Service Aug 27, 2020 Subjective 39yo at 23w5d by 8w2d US, EDWIN 29 Oct with Vini twins presents to triage with complaint of migraine GRIFFIN since approximately 1300. Pt has hx of migraines typically relieved with excedrine outside of , however has hx of preeclampsia in prior as well. States symptoms are similar to her typical migraine, located in bilateral orbital region. Denies vision changes, RU Q pain or dyspnea. She reports occasional contractions that are non-painful, denies LOF, VB or discharge. +GFM. Objective Vital Signs Date Time Temp Pulse Resp B/P (MAP) Pulse Ox O2 Delivery O2 Flow Rate FiO2 08/27/20 20:59 18 Room Air 08/27/20 20:10 89 18 108/59 (75) Laboratory Tests 08/27/20 22:10: White Blood Count 11.0H, Red Blood Count 3.10L, Hemoglobin 10.0L, Hematocrit 31.3L, Mean Corpuscular Volume 101.0H, Mean Corpuscular Hemoglobin 32.3, Mean Corpuscular Hemoglobin Concent 31.9L, Red Cell Distribution Width 12.7, Platelet Count 251, Nucleated Red Blood Cells % (auto) 0.0, Sodium Level 136, Potassium Level 4.0, Chloride Level 106, Carbon Dioxide Level 22, Anion Gap 8, Blood Urea Nitrogen 7, Creatinine 0.61, Glomerular Filtration Rate > 60.0, Fasting Glucose 92, Calcium Level 8.5, Total Bilirubin 0.1L, Aspartate Amino Transf (AST/SGOT) 27, Alanine Aminotransferase (ALT/SGPT) 41, Alkaline Phosphatase 92, Total Protein 6.3L, Albumin 2.5L, Albumin/Globulin Ratio 0.7L 08/27/20 22:56: Urine Random Creatinine 61.4, Urine Random Total Protein 5.7 (RATIO 0.1) General: AAO x3. Mild distress (eyes closed with complaint of migraine) CV/Lungs: Regular rate, normal work of breathing Abdomen: Gravid. TAUS performed for further evaluation of FWB. Baby A variable position, Baby B transverse. Both FHR in 140's Ext: no edema SVE: deferred (nonpainful, occasional ctx) Assessment Heart Rate (FHR): 140 (Twin A: 140 (on US)Twin B: 145 (on US)FHT attempted, difficulty to obtain tracing due to early gestational age. Partial tracing overall reasurring) Tocometer Contractions: Yes Frequency: irregular (non-painful) Assessment and Plan Additional Comments 39yo vini twin gestation at 23w5d by 8wk US, EDWIN 29 Oct presents for GRIFFIN -Pt offered PO vs. IV hydration. Initially requesting IV, however due to difficult IV placement, opted for PO hydration -PreE labs obtained due to past hx, all wnl. BP normotensive -GRIFFIN improved with Fioricet and small meal. Does not have anything at home for migraines at this time. Rx for Mag Oxide sent to pharmacy, will add Fioricet if needed -Pt encouraged to complete baseline 24hr urine collection (states she has supplies at home) -Pt stable for D/C home, has follow up growth US on Tue and COB visit on Aug. Return precautions provided. DANIEL VASQUEZ M.D. Aug 28, 2020 00:00
== END 2020-08-28 00:22 | disposition home or self-care (01) ==
LOC: M LDO 19:51
PROVIDERS: ATTEND Obstetrics & Gynecology
DX: O30.042 Twin pregnancy, dichorionic/diamniotic, second trimester (principal); Z3A.23 23 weeks gestation of pregnancy; O99.352 Diseases of the nervous system complicating pregnancy, second trimester; G43.909 Migraine, unspecified, not intractable, without status migrainosus; O09.522 Supervision of elderly multigravida, second trimester; Z79.899 Other long term (current) drug therapy
CPT/HCPCS: 36415; 80053; 82570; 84156; 85027; G0378; G0463

== ENCOUNTER 2020-09-01 13:22 | Outpatient (CLI) | payer OTHER ==
[~2020-09-01] VITALS: Ht 162.6 cm; Wt 87.4 kg
[2020-09-01 13:44] VITALS: BP 138/83
[2020-09-01] MEDS ORDERED: VITA100T59 PO (13:48)
[2020-09-01] MEDS ORDERED: PEPC1TAB5 PO (13:48)
[2020-09-01 15:46] VITALS: BP 131/79
--- NOTE | 2020-09-01 16:53 | IPNPDOC ---
Text Note Date of Service The patient was seen on 09/01/20. NOTE S: 39yo angela [id number] @25 wks presenting to labor and delivery with c/o pelvic pressure and irregular cramping. States +Fm, denies bleeding, LOF. Denies intercourse in the last 24 hours. O: VSS FHR tracing appropriate for gestational age x2. Irregular contractions noted q15-30 min. Speculum exam completed with cervix visually closed, thin, white normal appearing discharge noted. FFN collected (not sent) GC/CT (pending) JOHN/WP (neg clue, neg trich, neg hyphae) Urine culture pending Pt states improvement in cramping with rest and water. Musculoskeletal tenderness is reproducible in the left groin. A: twin gestation [id number] suspected condition not found P: Reviewed comfort measures, use of maternity support belt, hydration, and reasons to return for care with expressed understanding. Keep scheduled OB appointments. VS,Fishbone, I+O VS, Fishbone, I+O Vital Signs Date Time Temp Pulse Resp B/P (MAP) Pulse Ox O2 Delivery O2 Flow Rate FiO2 09/01/20 13:44 98.2 109 15 138/83 (101) MALIA SANTIAGO CNM Sep 01, 2020 16:53
[2020-09-01 19:29] LABS: GC DNA AMPLIFICATION NEGATIVE (NEGATIVE)
== END 2020-09-01 17:00 | disposition home or self-care (01) ==
LOC: M LDO 13:22
PROVIDERS: ATTEND Registered Nurse
DX: O30.042 Twin pregnancy, dichorionic/diamniotic, second trimester (principal); Z3A.25 25 weeks gestation of pregnancy; O47.02 False labor before 37 completed weeks of gestation, second trimester; O26.892 Other specified pregnancy related conditions, second trimester; R10.2 Pelvic and perineal pain; Z79.899 Other long term (current) drug therapy

== ENCOUNTER 2020-09-28 16:30 | Outpatient (CLI) | payer OTHER ==
[~2020-09-28] VITALS: Ht 162.6 cm; Wt 89.3 kg
[~2020-09-28 16:30] MED LIST changes: +PEPC1TAB5 PO; +VITA100T59 PO
[2020-09-28 17:18] VITALS: BP 99/63
[2020-09-28] MEDS ORDERED: [UNRECOGNIZED DRUG - CODE] PO (17:33)
[2020-09-28] MEDS ORDERED: HOME MED LIST COMPLETE! XX SCH (17:40)
[2020-09-28] MEDS ORDERED: LR 1,000 ML IV ONE (17:50)
--- NOTE | 2020-09-28 18:29 | IPNPDOC ---
Subjective Date Seen The patient was seen on 09/28/20. Subjective Chief Complaint/HPI 39yo at 28w2d with Vini twins presents to triage with constant pelvic pain, occasional contractions, N/V and an episode of diarrhea. Pt states her symptoms began yesterday around 1000. She states she awoke with nausea and had several episodes of vomiting as well as an episode of diarrhea. She denies any exposure to infected individuals and states she did not eat anything in particular that she feels could have caused her nausea. She states she has only been able to tolerate small amounts of water, ice chips and small snacks since yesterday. She also notes some leaking that has been ongoing since yesterday. She reports recent sexual activity prior to her symptoms. States it is a small amount and continuous. State it is clear in color with no odor. She states she is feeling contractions about every 30 min as well as a constant low pelvic pain which has been present for several weeks. Denies bleeding or discharge. +GFM x2. General: Reports: Normal Appetite; Denies: Chills, Night Sweats, Fatigue, Malaise Constitutional: Denies: Chills, Fever, Night Sweats Pulmonary: Denies: Dyspnea, Cough Cardiovascular: Denies: Chest Pain, Palpitations, Orthopnea, Paroxysmal Noc. Dyspnea, Lt Headedness Gastrointestinal: Reports: Nausea, Vomiting, Diarrhea Genitourinary: Denies: Dysuria, Frequency, Incontinence, Retention Psych: Reports: Mood Normal; Denies: Depression, Memory Issues Objective Physical Examination General Exam: Positive: Alert, No Acute Distress Chest Exam: Positive: Normal air movement Heart Exam: Positive: Rate Normal Abdomen Exam: Positive: Soft; Negative: Tenderness Female Exam: Positive: Nl Ext Genitalia; Negative: Lesions, Tenderness Neuro Exam: Positive: Normal Speech Psych Exam: Positive: Mental status NL, Mood NL, Oriented x 3; Negative: Anxiety Other physical findings FHT: 150's/140's, both moderate variability and appropriate for gestational age [place]: irregular contractions on toco, unable to palpate. Speculum exam: neg for pooling, nitrizine or ferning. Neg JOHN/Wet prep SVE: closed/thick/high Limited TAUS: A transverse, B breech. Fluid subjectively normal for both. Anatomy not assessed. Assessment /Plan Assessment 39yo at 28w2d with several complaints including N/V, pelvic pain, LOF. TAUS performed with normal fluid noted for both twins. SSE completed and negative for ROM. JOHN/Wet prep and UA all negative. IV fluid bolus given with resolution of contractions on tocometer, pt not feeling contractions. Declined antiemetics (states she takes dramamine at home which provides relief). Labs obtained for further evaluation of N/V, within normal limits. Pt now requesting food. Will D/C home. Scheduled for COB visit on Tuesday this week. Plan/VTE VTE Prophylaxis Ordered?: No VTE Exclusion Mechanical Proph: Other (triage) VS, I&O, 24H, Fishbone Vital Signs/I&O Vital Signs Date Time Temp Pulse Resp B/P (MAP) Pulse Ox O2 Delivery O2 Flow Rate FiO2 09/28/20 17:18 97.9 104 16 99/63 (75) Laboratory Data 24H LABS Laboratory Tests 09/28/20 18:33 DANIEL VASQUEZ M.D. Sep 28, 2020 18:29
[2020-09-28 18:56] LABS: HEMATOCRIT 29.8 % (36.0-47.0); HEMOGLOBIN 9.8 g/dl (12.0-15.5); MEAN CORPUSCULAR HEMOGLOBIN 31.3 pg (27.0-33.0); MEAN CORPUSCULAR HGB CONC 32.9 g/dl (32.0-36.5); MEAN CORPUSCULAR VOLUME 95.2 fl (80.0-96.0); PLATELET COUNT, AUTOMATED 230 10^3/uL (150-450); RED BLOOD COUNT 3.13 10^6/uL (4.00-5.40); WHITE BLOOD COUNT 9.7 10^3/uL (4.0-10.0)
[2020-09-28 19:01] LABS: APPEARANCE, URINE CLEAR (CLEAR); BACTERIA, URINE AUTO NEGATIVE (NEGATIVE); BILIRUBIN, URINE AUTO NEGATIVE (NEGATIVE); BLOOD, URINE BLOOD NEGATIVE (NEGATIVE); COLOR, URINE YELLOW (YELLOW); GLUCOSE, URINE (UA) AUTO NEGATIVE (NEGATIVE); KETONE, URINE AUTO NEGATIVE (NEGATIVE); LEUKOCYTE ESTERASE, URINE AUTO NEGATIVE (NEGATIVE); MUCUS, URINE SMALL (NEGATIVE); NITRITE, URINE AUTO NEGATIVE (NEGATIVE); PROTEIN, URINE AUTO NEGATIVE (NEGATIVE); RBC, URINE AUTO 0 /HPF (0-3); SPECIFIC GRAVITY URINE AUTO 1.017 (1.002-1.035); SQUAMOUS EPITHELIAL CELL UR AU 1 /HPF (0-6); WBC, URINE AUTO 0 /HPF (0-3)
[2020-09-28 19:18] LABS: ALT/SGPT 24 U/L (12-78); BILIRUBIN,TOTAL 0.2 MG/DL (0.2-1.0); GLOMERULAR FILTRATION RATE > 60.0 (>60); LDH LACTATE DEHYDROGENASE 281 U/L (84-246); URIC ACID 3.7 MG/DL (2.6-6.0)
== END 2020-09-28 19:49 | disposition home or self-care (01) ==
LOC: M LDO 16:30
PROVIDERS: ATTEND Obstetrics & Gynecology
DX: O26.893 Other specified pregnancy related conditions, third trimester (principal); Z3A.28 28 weeks gestation of pregnancy; R10.2 Pelvic and perineal pain; O21.8 Other vomiting complicating pregnancy; O30.042 Twin pregnancy, dichorionic/diamniotic, second trimester; R19.7 Diarrhea, unspecified; N89.8 Other specified noninflammatory disorders of vagina; O32.1XX2 Maternal care for breech presentation, fetus 2; O09.513 Supervision of elderly primigravida, third trimester
CPT/HCPCS: 59025; 81001; 82247; 82565; 83615; 84450; 84460; 84550; 85027; 96360; G0378; G0463

== ENCOUNTER 2020-10-09 15:08 | Outpatient (CLI) | payer OTHER ==
[~2020-10-09 15:08] MED LIST changes: +[UNRECOGNIZED DRUG - CODE] PO
[2020-10-09] MEDS ORDERED: LR 1,000 ML IV ONE (15:40)
[2020-10-09 17:19] LABS: APPEARANCE, URINE CLEAR (CLEAR); BACTERIA, URINE AUTO NEGATIVE (NEGATIVE); BILIRUBIN, URINE AUTO NEGATIVE (NEGATIVE); BLOOD, URINE BLOOD NEGATIVE (NEGATIVE); COLOR, URINE STRAW (YELLOW); GLUCOSE, URINE (UA) AUTO NEGATIVE (NEGATIVE); KETONE, URINE AUTO NEGATIVE (NEGATIVE); LEUKOCYTE ESTERASE, URINE AUTO NEGATIVE (NEGATIVE); NITRITE, URINE AUTO NEGATIVE (NEGATIVE); PROTEIN, URINE AUTO NEGATIVE (NEGATIVE); RBC, URINE AUTO 1 /HPF (0-3); SPECIFIC GRAVITY URINE AUTO 1.006 (1.002-1.035); SQUAMOUS EPITHELIAL CELL UR AU 1 /HPF (0-6); UROBILINOGEN, URINE AUTO 0.2 mg/dL (0.0-2.0); WBC, URINE AUTO 0 /HPF (0-3)
--- NOTE | 2020-10-09 18:07 | IPNPDOC ---
Obstetrical Progress Note Date of Service Oct 09, 2020 Assessment Variability: Moderate Tocometer Contractions: Yes Sterile Vaginal Examination Dilation: None Assessment and Plan Additional Comments Ms. Giraldo is a 39yo with di di twins who presents for a labor check. She reports she had contractions that started yesterday morning and have not worsened since then. She denied vb, lof, decreased fm. VS normal. NST appropriate for gestational age. Contractions noted on toco. Exam with NEFG, cervix visually closed, JOHN/WP with >30% clue cells, abundant off white discharge noted, SVE C/T/H and unchanged on 2h repeat exam. TAUS cephalic/breech, MVP 3.6/3.7cm. TVUS with CL 4.5cm without changes with valsalva. UA unremarkable. GC pending. PTL is unlikely at this time, contractions likely due to dehydration and bacterial vaginosis. Improved with IV fluid hydration. Script given for metronidazole. Educated on routine OB return precautions, otherwise to followup at net next [facility]MA. Will call with abnormal GC results. MINI WHITMORE DO Oct 09, 2020 18:07
[2020-10-09 21:55] LABS: GC DNA AMPLIFICATION NEGATIVE (NEGATIVE)
== END 2020-10-09 18:00 | disposition home or self-care (01) ==
LOC: M LDO 15:08
PROVIDERS: ATTEND Registered Nurse Maternal Newborn
DX: O47.02 False labor before 37 completed weeks of gestation, second trimester (principal); Z3A.30 30 weeks gestation of pregnancy; O30.043 Twin pregnancy, dichorionic/diamniotic, third trimester; O34.219 Maternal care for unspecified type scar from previous cesarean delivery; O09.523 Supervision of elderly multigravida, third trimester; Z87.59 Personal history of other complications of pregnancy, childbirth and the puerperium; O32.1XX1 Maternal care for breech presentation, fetus 1
CPT/HCPCS: 59025; 81001; 87661; G0378; G0463

== ENCOUNTER 2020-10-10 06:05 | Outpatient (CLI) | payer OTHER ==
[~2020-10-10] VITALS: Ht 162.6 cm; Wt 89.5 kg
[2020-10-10 06:27] VITALS: BP 117/78
[2020-10-10] MEDS ORDERED: HOME MED LIST COMPLETE! XX SCH (06:55)
[2020-10-10] MEDS ORDERED: BETAMETHASONE SOLUSPAN 6MG/ML 5ML VIAL (J0702 PER 3MG) IM STA (07:52)
[2020-10-10] MEDS ORDERED: LR 1,000 ML IV SCH (07:55)
[2020-10-10] MEDS ORDERED: ONDANSETRON 4MG/2ML VIAL IV PRN (07:55)
[2020-10-10] MEDS ORDERED: MAG Sulf (L&D) 4 GM/100 ML 4 GM in IV 1 EA IV ONE (07:55)
[2020-10-10] MEDS ORDERED: AZITHROMYCIN 250MG TABLET PO STA (07:56)
[2020-10-10] MEDS ORDERED: MAGNESIUM SULFATE 4% INJ 20GM/500ML (40MG/ML) As Ordered ONE (08:07)
[2020-10-10] MEDS ORDERED: MAG Sulf (OBGYN) 20GM/500ML 20,000 MG in IV 1 EA IV SCH (08:15)
[2020-10-10 08:28] VITALS: BP 131/83
--- NOTE | 2020-10-10 08:32 | HPEPDOC ---
Obstetrical History & Physical General Date of Admission History of Present Illness Mrs. Giraldo is a 39yo at 30w0d by 8w3d US (on May 11) with EDWIN Nov presenting to triage for LOF. Pt presented initially overnight for discharge and was noted to have BV and was discharged home. US at that time showed normal fluid of both babies and exam was negative for rupture. She represented this AM at 0600 and was noted to be grossly ruptured. She is otherwise without complaint. Denies any contractions at this time, denies vaginal bleeding and reports normal movement of both babies. 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 Past Medical History Surgical History: section Family History Significant Family History: No pertinent family hx Family History No pertinent family history Social History Marital Status: Family situation: Spouse/partner home * Smoker: non-smoker Alcohol: Denies Drugs: denies Allergies Coded Allergies: No Known Drug Allergies (Verified Allergy, Unknown, 08/27/20) Medications Scheduled Ascorbic Acid (Vitamin C) 100 Mg Tablet, 100 MG PO DAILY Aspirin (Ecotrin) 81 Mg Tablet.dr, 81 MG PO DAILY for pain Docusate Sodium (Colace) 100 Mg Capsule, 1 CAP PO BID Famotidine (Pepcid) 20 Mg Tablet, 1 TAB PO BID No122/Iron/Folic Acid ( Multi Tablet) 1 Each Tablet, 1 TAB PO DAILY Scheduled PRN dimenhyDRINATE (Dramamine) 50 Mg Tab.chew, 50 MG PO Q4-6HP PRN for NAUSEA Miscellaneous Medications Ferrous Sulfate (Ferrous Sulfate) 325 Mg Tablet.dr, 325 MG PO Physical Examination Physical Examination GENERAL: Alert and oriented times three. ABDOMEN: Gravid and non-tender to touch. FETUS: Baby A cephalic, baby B breech on US HEART RATE: Regular rate and rhythm. LUNGS: Clear to auscultation (CTA). EXTREMITIES: No edema. No clonus. Vital Signs/I&O Vital Signs Date Time Temp Pulse Resp B/P (MAP) Pulse Ox O2 Delivery O2 Flow Rate FiO2 10/10/20 06:27 98.5 101 18 117/78 (91) Pertinent Laboratoy Data Blood Type: A+ RBC Antibody Screen: Negative HIV: Negative Hepatitis B: Negative Rapid Plasma Reagin: Nonreactive Rubella: Immune Varicella: Immune Chlamydia/Gonorrhea: Negative Group B Streptococcus: Unknown Glucose Tolerance Test: 152 Anatomy Ultrasound Ultrasound Date: Oct 10, 2020 Normal Anatomy: Yes Vaginal Examination Dilation: None (visually closed) Assessment Variability: Moderate (A- 130's, B - 140's mod variability, appropriate for gestational age. No decels) Decelerations: None Tocometer Contractions: Yes (occasional, non painful) Assessment/Plan Assessment 39yo at 30w0d by 8w3d US with EDWIN 12/19/20 with Vini twins, presenting with PPROM Vini twin gestation Hx of LTCS x1 at term AMA - NIPT low risk Elevated 1hr, has not yet completed 3hr Hx of preE in prior Plan Transfer to [place] for higher level of care. Pt stable, cervix visually closed and pt comfortable. Occasional contractions, non painful GBS and rapid COVID screen collected Labs pending Initiated Magnesium for neuroprotection, betamethasone IM and latency abx Baby A cephalic with no measurable fluid. Baby B breech with MVP of 4cm DANIEL VASQUEZ M.D. Oct 10, 2020 08:32
[2020-10-10 08:50] VITALS: BP 117/76
[2020-10-10 08:52] VITALS: BP 127/81
[2020-10-10] MEDS ORDERED: AMPICILLIN SOD 2 GM in D5W MINI-BAG PLUS 100 ML IV SCH (09:00)
[2020-10-10 09:03] LABS: HEMATOCRIT 33.3 % (36.0-47.0); HEMOGLOBIN 10.9 g/dl (12.0-15.5); MEAN CORPUSCULAR HEMOGLOBIN 31.4 pg (27.0-33.0); MEAN CORPUSCULAR HGB CONC 32.7 g/dl (32.0-36.5); PLATELET COUNT, AUTOMATED 262 10^3/uL (150-450); RED BLOOD COUNT 3.47 10^6/uL (4.00-5.40); WHITE BLOOD COUNT 14.1 10^3/uL (4.0-10.0)
[2020-10-10 09:40] LABS: BLOOD UREA NITROGEN 7 MG/DL (7-18); CHLORIDE LEVEL 107 MEQ/L (98-107); CREATININE FOR GFR 0.56 MG/DL (0.55-1.30); GLOMERULAR FILTRATION RATE > 60.0 (>60); GLUCOSE, FASTING 88 MG/DL (70-100); POTASSIUM SERUM 4.3 MEQ/L (3.5-5.1); SODIUM LEVEL 136 MEQ/L (136-145)
[2020-10-10 09:41] LABS: ALBUMIN 2.6 GM/DL (3.2-5.2); ALT/SGPT 32 IU/L (0-32); BILIRUBIN,TOTAL 0.5 MG/DL (0.2-1.0); CALCIUM LEVEL 9.3 MG/DL (8.5-10.1); CARBON DIOXIDE LEVEL 21 mmol/L (20-29); TOTAL PROTEIN 7.1 GM/DL (6.4-8.2)
== END 2020-10-10 08:57 | disposition other institution (70) ==
LOC: M LDO 06:05
PROVIDERS: ATTEND Obstetrics & Gynecology
DX: O42.913 Preterm premature rupture of membranes, unspecified as to length of time between rupture and onset of labor, third trimester (principal); Z3A.30 30 weeks gestation of pregnancy; O30.043 Twin pregnancy, dichorionic/diamniotic, third trimester; O34.211 Maternal care for low transverse scar from previous cesarean delivery; O09.523 Supervision of elderly multigravida, third trimester; Z87.59 Personal history of other complications of pregnancy, childbirth and the puerperium
CPT/HCPCS: 59025; 80053; 85027; 87081; 96372; 96374; 96375; G0378; G0463; J0290; J0702; J3475; U0002

== ENCOUNTER 2021-05-04 23:21 | Emergency (ER) | payer OTHER ==
[~2021-05-04] VITALS: Ht 162.6 cm; Wt 77.3 kg
[2021-05-05 01:39] LABS: AMORPHOUS SEDIMENT SMALL (NEGATIVE); APPEARANCE, URINE CLOUDY (CLEAR); BACTERIA, URINE AUTO 1+ (NEGATIVE); BILIRUBIN, URINE AUTO NEGATIVE (NEGATIVE); BLOOD, URINE BLOOD 1+ (NEGATIVE); COLOR, URINE YELLOW (YELLOW); GLUCOSE, URINE (UA) AUTO NEGATIVE (NEGATIVE); KETONE, URINE AUTO NEGATIVE (NEGATIVE); LEUKOCYTE ESTERASE, URINE AUTO NEGATIVE (NEGATIVE); MUCUS, URINE SMALL (NEGATIVE); NITRITE, URINE AUTO POSITIVE (NEGATIVE); PROTEIN, URINE AUTO NEGATIVE (NEGATIVE); RBC, URINE AUTO 3 /HPF (0-3); SPECIFIC GRAVITY URINE AUTO 1.021 (1.002-1.035); SQUAMOUS EPITHELIAL CELL UR AU 3 /HPF (0-6); WBC, URINE AUTO 3 /HPF (0-3)
[2021-05-05 01:49] LABS: BASO % 0.4 % (0.0-1.0); EOS # 0.1 10^3/uL (0.0-0.5); EOS % 0.8 % (0.0-3.0); HEMATOCRIT 37.4 % (36.0-47.0); HEMOGLOBIN 12.2 g/dl (12.0-15.5); LYMPH # 2.3 10^3/uL (1.5-5.0); LYMPH % 30.8 % (24.0-44.0); MEAN CORPUSCULAR HEMOGLOBIN 30.6 pg (27.0-33.0); MEAN CORPUSCULAR HGB CONC 32.6 g/dl (32.0-36.5); MEAN CORPUSCULAR VOLUME 93.7 fl (80.0-96.0); MONO # 0.6 10^3/uL (0.0-0.8); MONO % 8.2 % (2.0-8.0); NEUTROPHILS # 4.3 10^3/uL (1.5-8.5); NEUTROPHILS % 59.5 % (36.0-66.0); PLATELET COUNT, AUTOMATED 304 10^3/uL (150-450); RED BLOOD COUNT 3.99 10^6/uL (4.00-5.40); WHITE BLOOD COUNT 7.3 10^3/uL (4.0-10.0)
[2021-05-05 02:16] LABS: HCG, SERUM QUALITATIVE POSITIVE (NEGATIVE)
[2021-05-05 02:19] LABS: ALBUMIN 3.7 GM/DL (3.2-5.2); ALT/SGPT 28 U/L (12-78); BILIRUBIN,DIRECT 0.1 MG/DL (0.0-0.2); BILIRUBIN,TOTAL 0.4 MG/DL (0.2-1.0); BLOOD UREA NITROGEN 11 MG/DL (7-18); CALCIUM LEVEL 9.1 MG/DL (8.5-10.1); CARBON DIOXIDE LEVEL 24 MEQ/L (21-32); CHLORIDE LEVEL 107 MEQ/L (98-107); CREATININE FOR GFR 0.78 MG/DL (0.55-1.30); GLOMERULAR FILTRATION RATE > 60.0 (>60); GLUCOSE, FASTING 92 MG/DL (70-100); LIPASE 100 U/L (73-393); POTASSIUM SERUM 3.7 MEQ/L (3.5-5.1); SODIUM LEVEL 139 MEQ/L (136-145); TOTAL PROTEIN 7.5 GM/DL (6.4-8.2)
[2021-05-05] MEDS ORDERED: MORPHINE 4 MG/ML 1ML VIAL/SYRINGE (J2270) IV PRN (03:40)
[2021-05-05] MEDS ORDERED: NS 1,000 ML IV ONE (03:40)
[2021-05-05] MEDS ORDERED: ONDANSETRON 4MG/2ML VIAL IV ONE (03:40)
[2021-05-05 03:49] LABS: HCG, SERUM QUANTITATIVE 3290 MIU/ML
[2021-05-05 06:30] VITALS: BP 115/68
== END 2021-05-05 06:50 | disposition home or self-care (01) ==
LOC: M ED 23:21
DX: N83.209 Unspecified ovarian cyst, unspecified side (principal); Z32.01 Encounter for pregnancy test, result positive
CPT/HCPCS: 76801; 76817; 80048; 80076; 81001; 83690; 84702; 84703; 85025; 86850; 86900; 86901; 93976; 96361; 96374; 96375; 99284; J2270; J2405